=== PATIENT | female | born 1980 | race Caucasian/White ===

== ENCOUNTER 2023-12-16 16:59 | Inpatient (IN) | payer BC, MEDICAID, SELFPAY ==
[2023-12-16] VITALS (13 sets, daily range): BP systolic 138–176; BP diastolic 65–84; PULSE 70–88; RESP 18–88; TEMP 36.1–38.2; O2SAT 88–98; BMI 27.9
--- NOTE | 2023-12-16 17:19 | XR_ITS ---
Examination: AP chest single view Technique: AP portable upright chest single view Exam date and time: December 16, 2023 1737 hrs. Indications: Fever today. Findings: Diffuse extensive bilateral pneumonia Mild prominence left ventricle Median sternotomy wires Impression: Diffuse extensive bilateral pneumonia
--- NOTE | 2023-12-16 17:19 | PD.EDRME ---
Rapid Medical Screening Exam RME Arrival date/time: 12/16/23 16:59 Time Seen by Provider: 12/16/23 17:12 Vital signs: Vital Signs Temperature 100.3 F 12/16/23 17:02 Respiratory Rate 19 12/16/23 17:02 Blood Pressure 156/65 H 12/16/23 17:02 Pulse Oximetry (%) 88 L 12/16/23 17:02 Oxygen Delivery Method Nasal Cannula 12/16/23 17:02 RME Narrative: 43 year old female with past medical history significant for multiple embolic disease, including NM, open-heart surgery, ?collapsed lungs? presents to the Emergency Department with complaint of progressively worsening, cough and shortness of breath, where her oxygen saturation was in the 80s at home, therefore called EMS. She did approximately six of her home, nebulizer treatments and five inhaled puffs without improvements of her shortness of breath over the day. She has completed four out of five days of the Zithromax. It was prescribed by her primary care. Initial work-up started and will be seen by additional provider.
[2023-12-16 18:57] LABS: Lactate (Lactic Acid) 0.8 mMol/L (0.4-2.0)
[2023-12-16 19:14] LABS: Basophils # (Auto) 0.1 Thou/mm3 (0.0-0.2); Basophils % (Auto) 0 % (0-2.5); Eosinophils # (Auto) 0.1 Thou/mm3 (0.0-0.5); Eosinophils % (Auto) 1 % (0-10); Hematocrit 31.7 % (36.0-46.0); Immature Granulocytes % (Auto) 1 % (0-0); Immature Granulocytes Auto 0.14 Thou/mm3 (0.00-0.00); Lymphocytes % (Auto) 9 % (10-50); Mean Corpuscular HGB Conc 34.7 g/dl (31.0-37.0); Mean Corpuscular Hemoglobin 31.5 pg (25.0-35.0); Mean Corpuscular Volume 91 fL (80-100); Monocytes # (Auto) 1.2 Thou/mm3 (0.0-0.8); Monocytes % (Auto) 6 % (0-12); Neutrophils # (Auto) 17.6 Thou/mm3 (1.8-7.7); Neutrophils % (Auto) 83 % (37-80); Nucleated Red Blood Cell % 0 /100 WBC (0); Platelet Count 257 Thou/mm3 (140-440); RDW Standard Deviation 44.3 fL (36.4-46.3); Red Blood Count 3.49 Miln/mm3 (4.00-5.20); White Blood Count 21.1 Thou/mm3 (3.6-11.0)
[2023-12-16 19:17] LABS: B-Type Natriuretic Peptide 411 pg/mL (0-100)
[2023-12-16 19:22] LABS: INR 1.2 (0.9-1.3); Partial Thromboplastin Time 38.5 Seconds (22.0-36.0); Prothrombin Time 13.3 Seconds (9.0-12.2)
[2023-12-16 19:29] LABS: Alanine Aminotransferase < 7 U/L (10-49); Albumin, Serum 3.9 gm/dL (3.5-5.0); Albumin/Globulin Ratio 1.5 (1.2-2.2); Alkaline Phosphatase 87 U/L (46-116); Anion Gap 6 (7-16); Aspartate Amino Transferase 17 U/L (0-34); BUN/Creatinine Ratio 18 Ratio (12-20); Bilirubin,Total 0.8 mg/dL (0.3-1.2); Blood Urea Nitrogen 11 mg/dL (9-23); Calcium 9.2 mg/dL (8.3-10.6); Calcium (Corrected) 9.3 mg/dL (8.5-10.1); Carbon Dioxide 20.6 mMol/L (20.0-31.0); Chloride 109 mMol/L (98-107); Creatinine (Component) 0.6 mg/dL (0.6-1.3); Globulin 2.6 gm/dL (2.3-3.5); Glucose 71 mg/dL (74-106); Osmolality,Calculated 269 (275-295); Potassium 3.2 mMol/L (3.4-5.1); Procalcitonin 0.06 ng/ml (0.0-0.49); Sodium 136 mMol/L (136-145); Total Protein 6.5 gm/dL (5.7-8.2); Troponin I < 0.020 ng/mL (0.0-0.045); eGFR > 60 See Note
[2023-12-16] MEDS: ONDANSETRON INJ 2 MG/ML INJ 2 ML 4 MG IV (19:30)
[2023-12-16] MEDS: MORPHINE SULF INJ 10 MG/ML VIAL 6 MG IV (19:31)
--- NOTE | 2023-12-16 19:43 | PD.EDSOB ---
ED SOB =RME/HPI General Chief Complaint: Shortness of Breath/Dyspnea Stated Complaint: difficulty breathing Time Seen by Provider: 12/16/23 17:12 Arrival date/time: 12/16/23 16:59 RME / HPI RME / HPI Narrative: A 43-year-old female patient with past medical history of ischemic CVA and June 2021, heart failure, coronary artery disease status post CABG, advanced peripheral artery disease, with femoral bypass, insulin-dependent diabetes mellitus, peripheral neuropathy, muscular dystrophy, left lower extremity history myelitis status post above-knee amputation, kyphosis, cervical instability, presented to the ED due to shortness of breath for 5 days before admission. Patient reported on Monday she started to feel chest tightness and she used inhaler at home however did not help, she went to her doctor and she was tested positive for strep. She was given azithromycin however symptoms did not relieve. She started to develop fever and worsening of her shortness of breath. She reported that she has cough but it was dry and nonproductive. On questioning patient reported that she stopped using her Lasix for the last week because she was concerned about her potassium level and she was planning to get it checked before she use her Lasix. She mentions that she has orthopnea and she mentions that she usually has abdominal swelling whenever she feels that she is congested. Patient denied any chest pain except just chest pressure. On review of other system patient reported that she has nausea however she denied any vomiting, any abdominal pain, or tract symptoms. Patient denied any skin rash . Related Data Home Medications ?Medication ?Instructions ?Recorded ?Confirmed nitroglycerin 0.4 mg sublingual 0.4 mg SL PRN PRN CHEST TIGHTNESS 05/30/15 12/09/22 tablet (Nitrostat) #0 tabs fentanyl 50 mcg/hr transdermal 50 mcg topical Q2D 05/16/19 12/09/22 patch insulin glargine 100 unit/mL (3 40 unit subcut DAILY 05/16/19 12/09/22 mL) subcutaneous pen (Basaglar KwikPen U-100 Insulin) insulin lispro 100 unit/mL 25 unit subcut BIDPC 05/16/19 12/09/22 subcutaneous pen (Admelog SoloStar U-100 Insulin lispro) carvedilol 12.5 mg tablet 12.5 mg PO BID 06/23/21 12/09/22 diazepam 5 mg tablet 5 mg PO PRN PRN Phantom Pain 06/23/21 12/09/22 oxycodone 5 mg tablet 5 mg PO Q6H PRN Pain 06/23/21 12/09/22 valsartan 80 mg tablet 40 mg PO BID 06/23/21 12/09/22 apixaban 5 mg tablet (Eliquis) 5 mg PO BID 04/27/22 12/09/22 furosemide 40 mg tablet (Lasix) 40 mg PO BID 04/27/22 12/09/22 pregabalin 75 mg capsule (Lyrica) 75 mg PO BID 09/18/22 12/09/22 ranolazine 500 mg tablet,extended 500 mg PO BID 09/18/22 12/09/22 release,12 hr amlodipine 5 mg tablet 5 mg PO QDAY 12/08/22 12/09/22 isosorbide mononitrate 30 mg 30 mg PO QDAY 12/08/22 12/09/22 tablet,extended release 24 hr fluoxetine 10 mg capsule 10 mg PO QDAY 12/09/22 12/09/22 Allergies Allergy/AdvReac Type Severity Reaction Status Date / Time adhesive Allergy Severe Hives Verified 12/08/22 07:38 protamine Allergy Severe Anaphylaxis Verified 12/08/22 07:38 ED Exam Narrative Physical exam: GEN: AOx3, able to speak full sentences, short of breath HEENT: NC/AC, oral mucosa dry, neck supple CVS: RRR, S1-S2 present, no murmurs appreciated RESP: Coarse crepitations bilaterally, good air entry bilaterally. GI: soft, distended, mild discomfort, NBS MSK: able to move all 3 limbs, left lower extremity amputation above knee, no lower extremity edema SKIN: Feverish, no visible skin rash CAR PILOT: CN II-XII and Sensation grossly intact. Course Quality Measures Current suspected stage: sepsis Possible source: pulmonary Blood cultures ordered: yes Antibiotic ordered: Yes Pertinent labs: 12/16/23 18:50 Lactic Acid 0.8 mMol/L (0.4-2.0) Procalcitonin 0.06 ng/ml (0.0-0.49) sepsis and none Orders Category Date Time Status Bedside Blood Glucose NOW Care 12/16/23 19:19 Active Bedside COVID-19 Antigen Test NOW Care 12/16/23 17:19 Active Bedside Influenza A&B Antigen Test NOW Care 12/16/23 17:19 Active Vending Manager Q4H START 00 Care 12/16/23 19:19 Active Insert IV NOW Care 12/16/23 19:19 Active Strict Intake and Output Routine Care 12/16/23 19:19 Ordered XR chest 1V Stat Exams 12/16/23 17:19 Taken BNP [B-Type Natriuretic Peptide] Stat Lab 12/16/23 18:50 Completed Blood Culture (Lab) Stat Lab 12/16/23 19:19 Ordered CBC Stat Lab 12/16/23 18:50 Completed CMP [Comprehensive Metabolic Panel] Stat Lab 12/16/23 18:50 Completed Lactate (Lactic Acid) Stat Lab 12/16/23 18:50 Completed Partial Thromboplastin Time Stat Lab 12/16/23 18:50 Completed Procalcitonin Stat Lab 12/16/23 18:50 Completed Prothrombin Time with INR Stat Lab 12/16/23 18:50 Completed RSV [Respiratory Syncytial Virus Ag] Stat Lab 12/16/23 17:19 Ordered Troponin I Stat Lab 12/16/23 18:50 Completed Urinalysis Stat Lab 12/16/23 19:19 Ordered Urine Culture Stat Lab 12/16/23 19:19 Ordered Acetaminophen Tab [Tylenol Tab] Med 12/16/23 19:31 Discontinued 650 mg PO X1 ONE Furosemide Inj [Lasix Inj] Med 12/16/23 19:42 Once 40 mg IVP X1 ONE KCL 10% Liq UDC 15 ML Med 12/16/23 19:32 Discontinued 40 meq PO X1 ONE Morphine Inj Med 12/16/23 17:30 Discontinued 6 mg IV X1 ONE Morphine Inj*Mfrout [Morphine Sulf Inj(MFROUT)] Med 12/16/23 17:18 Discontinued 6 mg IV X1 ONE Ondansetron Inj [Zofran Inj] Med 12/16/23 19:24 Discontinued 4 mg IV X1 ONE POTASSIUM CHL 10 mEq IVPB [Kcl Ivpb] Med 12/16/23 19:33 Active 10 meq in 100 ml IV Q1H cefTRIAXone/D5w 1gm IV premix [Rocephin/D5w 1gm IV Med 12/16/23 19:32 Active premix] 50 ml IV X1 Oxygen Delivery NOW RT 12/16/23 19:19 Active Vital Signs Vital signs: Vital Signs Temperature 100.3 F 12/16/23 17:02 Respiratory Rate 19 12/16/23 17:02 Blood Pressure 156/65 H 12/16/23 17:02 Pulse Oximetry (%) 88 L 12/16/23 17:02 Oxygen Delivery Method Nasal Cannula 12/16/23 17:02 Shortness of Breath / Dyspnea MDM Narrative MDM Narrative:: Patient has history of heart failure, came with AHRF and sepsis secondary to pneumonia we started the patient on ceftriaxone and vancomycin we will not start the patient on IV fluids as the patient has heart failure, chest x-ray showed vascular congestion bilaterally and showed left lung infiltrate most likely pneumonic infiltrate. Vitally the patient was found to have blood pressure of 176/84, pulse rate of 88, respiratory rate of 22, heart rate of 100.7, saturating 92% on 11 L of oxygen. WBC was found to be 21.1, hemoglobin of 11, potassium level found to be 3.2 will give the patient 40 potassium p.o. and 20 IV, glucose was found to be 71, will encourage the patient to have oral diet, lactic acid was found to be 0.8, BNP 411 baseline usually in the 200s, even the he has obesity. Procalcitonin was found to be 0.06 normal. Will start the patient on ceftriaxone, vancomycin, given 1 single dose of Lasix 40 mg IV with strict in and out. Will call the hospitalist team for admission for sepsis secondary to pneumonia. Patient data External records reviewed:: [facility] previous records Clinical information provided by:: patient and family Social determinants that could affect healthcare access:: other (specify) Patient has the following chronic illnesses:: Muscular dystrophy How is presenting disease/condition affected by chronic disease/condition?: exacerbated by Evaluation data The following diagnostics were reviewed and interpreted by me:: lab results, radiology exam(s) and EKG tracing(s) Lab and/or radiology exams considered but not ordered:: None Interpretation Summary: Sepsis 2/2 PNA Medications / Prescriptions Medications or Prescriptions considered but not ordered:: none Medication administrations:: Medication Administration History Furosemide (Furosemide Inj 10 Mg/Ml 4ml Vial) 40 mg IVP X1 ONE Stop: 12/16/23 19:43 Ceftriaxone Sodium/Dextrose (Rocephin/D5w 1gm Iv Premix) 50 mls @ 100 mls/hr IV X1 ONE Stop: 12/16/23 20:01 Potassium Chloride (Kcl Ivpb) 10 meq in 100 mls @ 100 mls/hr IV Q1H TALAT Stop: 12/16/23 21:32 Discontinued Medications Acetaminophen (Acetaminophen 325 Mg Tablet) 650 mg PO X1 ONE Stop: 12/16/23 19:32 Morphine Sulfate (Morphine Sulf Inj 4 Mg/Ml Vial) 6 mg IV X1 ONE Stop: 12/16/23 17:19 Last Admin: 12/16/23 19:29 Dose: Not Given Documented By: FABRICE Non-Admin Reason: Duplicate Medication on eMAR Morphine Sulfate (Morphine Sulf Inj 10 Mg/Ml Vial) 6 mg IV X1 ONE Stop: 12/16/23 17:31 Last Admin: 12/16/23 19:31 Dose: 6 mg Documented By: FABRICE Ondansetron HCl (Ondansetron Inj 2 Mg/Ml Inj 2 Ml) 4 mg IV X1 ONE; Protocol Stop: 12/16/23 19:25 Last Admin: 12/16/23 19:30 Dose: 4 mg Documented By: FABRICE Potassium Chloride (Potassium Chloride 10% 20 Meq/15 Ml Udc) 40 meq PO X1 ONE Stop: 12/16/23 19:33 as above if given Consultations Consultation(s) initiated? (list below): Yes Diagnosis Shortness of Breath Differential Diagnosis: acute exacerbation of chronic obstructive airways disease and community acquired pneumonia Most likely diagnosis given after review of the tests above:: sepsis 2/2 PNA Admission Indicated Admission indicated?: indicated Admission Request Was there a request for admission?: Yes Admission Attestation Admission request attestation: Discussed case with [] from Hospitalist service regarding admission. Discussed patients ED course, exam findings, labs, and radiology results. The Hospitalist [agrees,declines] to accept the patient for admission. Disposition Plan Disposition Plan: Admit Discharge Plan Plan Patient Disposition: Admit Acute Care w/in Hospital Prescriptions/Referrals Prescriptions/Med Rec: No Action nitroglycerin [Nitrostat] 0.4 MG tablet, sublingual 0.4 mg SL PRN PRN (Reason: CHEST TIGHTNESS) Qty: 0 insulin glargine [Basaglar KwikPen U-100 Insulin] 100 unit/mL (3 mL) Insulin Pen 40 unit SUBCUT DAILY insulin lispro [Admelog SoloStar U-100 Insulin] 100 unit/mL Insulin Pen 25 unit SUBCUT BIDPC fentanyl 50 mcg/hr Patch 72 Hour 50 mcg topical Q2D Patient Comments: CHANGE PATCH EVERY 48 HRS carvedilol 12.5 mg Tablet 12.5 mg PO BID Rx Instructions: must administer with a meal/food valsartan 80 mg Tablet 40 mg PO BID diazepam 5 mg Tablet 5 mg PO PRN PRN (Reason: Phantom Pain) oxycodone 5 mg Tablet 5 mg PO Q6H PRN (Reason: Pain) amlodipine 5 mg tablet 5 mg PO QDAY isosorbide mononitrate 30 mg Tablet Extended Release 24 Hr 30 mg PO QDAY furosemide [Lasix] 40 mg Tablet 40 mg PO BID Eliquis 5 mg Tablet 5 mg PO BID Hold Instructions: Resume on 12/09/22. Re-start Eliquis on this date at your regular schedule pregabalin [Lyrica] 75 mg Capsule 75 mg PO BID ranolazine 500 mg Tablet Extended Release 12 Hr 500 mg PO BID fluoxetine 10 mg Capsule 10 mg PO QDAY Referrals: Hoang Hu MD [Primary Care Provider] - In 1 week Problem List Clinical Impression: Acute hypoxemic respiratory failure Patient/Caregiver Discharge Instructions Print Language: Tongan Stand Alone Forms: Jennyfer Award Info., Patient Portal Info Letter
[2023-12-16] MEDS: ACETAMINOPHEN 325 MG TABLET 650 MG PO (19:48)
[2023-12-16] MEDS: cefTRIAXone/D5w 1gm IV premix 50 ML IV (20:03)
[2023-12-16] MEDS: POTASSIUM CHLORIDE 20 mEq TABCR 40 MEQ PO (20:31)
[2023-12-16] MEDS: FUROSEMIDE INJ 10 MG/ML 4ML VIAL 40 MG IVP (20:34)
[2023-12-16] MEDS: POTASSIUM CHL 10 mEq IVPB 10 MEQ/100 ML BAG 100 MEQ IV (20:39)
[2023-12-16] MEDS: ALBUTEROL/IPRATROPIUM (Duoneb) RT SOL 3 ML NEBU INH (20:42)
--- NOTE | 2023-12-16 20:52 | ESHP_ITS ---
Documentation for date of: 12/16/23 [facility] History of Present Illness History of present illness: Kecia Fuentes is a 43-year-old female with a past medical history of IDDM, HFpEF, ischemic CVA without deficits (06/2021), severe kyphosis resulting in intermittent atelectasis and pneumonia, history of multiple clots in extremities and coronary arteries resulting in CAD s/p CABG, above the knee amputation, and severe peripheral vascular disease now presenting with shortness of breath. Symptoms started with fever, chills, sore throat on Monday. Patient went to see PCP and was diagnosed with strep throat for which she was given azithromycin but symptoms did not improve. Then developed shortness of breath, congestion, and chest tightness and prompted her to come to the ED and was initially put on 10 L oxymask, and is not on any home oxygen. She states that she often gets pneumonia secondary to her kyphosis that causes atelectasis, which is also the reason she has a rescue inhaler. Patient also endorse nausea but believes it is due to her coughing. Otherwise, denies change in bowel movements, dysuria, hematuria, or abdominal pain. Of note, patient and family are currently undergoing workup for hypercoagulability disorders. ED course: BP 156/65, T 100.7 F, O2 88% -> 90% 15 L oxymask WBC 21, PT/PTT elevated, K 3.2, lactic acid wnl, procal wnl, trop (-), BNP 411 CXR: Diffuse, extensive bilateral pneumonia In ED given ceftriaxone x1, morphine 6 mg IV x1, 50 mEq potassium, lasix 40 mg IV x1, duonebs x1 PMHx: IDDM, HFpEF, kyphosis, recurrent clots, CAD, PVD Medications: Pregabalin 150 mg BID, valsartan 40 mg BID, carvedilol 12.5 mg BID, furosemide, pradaxa BID, ASA 81 mg, ranolazine 1,000 mg, fentanyl patch, oxycodone SHx: Smokes 1 PPD cigarette, no alcohol or illicit drug use PSHx: Above the knee amputation, CABG Review of Systems Review of Systems Systems Reviewed: All systems reviewed, normal except as documented Exam Vital Signs Temp Pulse Resp BP Pulse Ox O2 Del Method O2 Flow Rate 100.7 F H 81 26 H 156/73 H 93 L Oxy Mask 15 12/16/23 19:48 12/16/23 20:42 12/16/23 20:42 12/16/23 20:34 12/16/23 20:42 12/16/23 18:09 12/16/23 20:42 Narrative Exam General: 15 L oxymask, AOx3, no mild distress, able to speak full sentences. HEENT: NC/AT, mucous membranes moist, bilateral sclera anicteric. Cardiovascular: Regular rate and rhythm, S1/S2 present, no murmurs appreciated; scar over sternum. Pulmonary: Diffuse bilateral wheezing and course lung sounds. Abdominal: Soft, non-tender, non-distended, no rebound/guarding, normal bowel sounds present. Musculoskeletal: Left-sided above the knee amputation. Skin: Warm and dry, intact, no rashes. Neuro: CN II-XII intact, no focal deficits. Results: Labs 12/16/23 18:50 12/16/23 18:50 Labs: Short CBC 12/16/23 Range/Units 18:50 WBC 21.1 H (3.6-11.0) Thou/mm3 Hgb 11.0 L (12.0-16.0) g/dL Hct 31.7 L (36.0-46.0) % Plt Count 257 (140-440) Thou/mm3 BMP 12/16/23 18:50 Sodium 136 Potassium 3.2 L Chloride 109 H Carbon Dioxide 20.6 BUN 11 Creatinine 0.6 Glucose 71 L Calcium 9.2 Cardiac Enzymes 12/16/23 Range/Units 18:50 Troponin I < 0.020 (0.0-0.045) ng/mL Liver Function 12/16/23 Range/Units 18:50 Total Bilirubin 0.8 (0.3-1.2) mg/dL AST 17 (0-34) U/L ALT < 7 L (10-49) U/L Alkaline Phosphatase 87 (46-116) U/L Albumin 3.9 (3.5-5.0) gm/dL Quality Measures Quality Measures sepsis Current suspected stage: sepsis Possible source: pulmonary Blood cultures ordered: yes Antibiotic ordered: Yes and none Medications Home Medications and Allergies Home Medications ?Medication ?Instructions ?Recorded ?Confirmed ?Type nitroglycerin 0.4 mg sublingual 0.4 mg SL PRN PRN CHEST TIGHTNESS 05/30/15 12/16/23 History tablet (Nitrostat) #0 tabs fentanyl 50 mcg/hr transdermal 50 mcg topical Q2D 05/16/19 12/16/23 History patch insulin glargine 100 unit/mL (3 40 unit subcut HS 05/16/19 12/17/23 History mL) subcutaneous pen (Basaglar KwikPen U-100 Insulin) insulin lispro 100 unit/mL 25 unit subcut AC 05/16/19 12/17/23 History subcutaneous pen (Admelog SoloStar U-100 Insulin lispro) carvedilol 12.5 mg tablet 12.5 mg PO BID 06/23/21 12/16/23 History oxycodone 5 mg tablet 5 mg PO Q6H PRN Pain 06/23/21 12/16/23 History valsartan 80 mg tablet 40 mg PO BID 06/23/21 12/16/23 History furosemide 40 mg tablet (Lasix) 80 mg PO FAHAD 04/27/22 12/17/23 History pregabalin 75 mg capsule (Lyrica) 150 mg PO BID 09/18/22 12/16/23 History ranolazine 500 mg tablet,extended 1,000 mg PO BID 09/18/22 12/16/23 History release,12 hr amlodipine 5 mg tablet 5 mg PO QDAY PRN Hypertension 12/08/22 12/17/23 History dabigatran etexilate 150 mg 150 mg PO BID 12/16/23 12/16/23 History capsule (Pradaxa) Allergies Allergy/AdvReac Type Severity Reaction Status Date / Time adhesive Allergy Severe Hives Verified 12/08/22 07:38 protamine Allergy Severe Anaphylaxis Verified 12/08/22 07:38 Visit Medications Albuterol/Ipratropium (Albuterol/Ipratropium (Duoneb) Rt Rocio 3 Ml Nebu) 3 ml INH Q2HR PRN PRN Reason: SHORTNESS OF BREATH OR WHEEZE Stop: 01/15/24 20:27 Carvedilol (Carvedilol 12.5 Mg Tablet) 12.5 mg PO BIDWM TALAT Stop: 01/16/24 07:59 Fentanyl (Fentanyl 50 Mcg Transdermal Patch) 50 mcg TOP Q3D TALAT; Protocol Stop: 12/21/23 20:29 Furosemide (Furosemide Inj 10 Mg/Ml 4ml Vial) 40 mg IVP QDAY TALAT Stop: 01/16/24 08:59 Vancomycin/Sodium Chloride (Vancomycin/Ns 1 Gm Ivpb) 200 mls @ 120 mls/hr IV Q100M TALAT Stop: 12/16/23 23:19 Ceftriaxone Sodium/Dextrose (Rocephin/D5w 1gm Iv Premix) 50 mls @ 100 mls/hr IV QDAY TALAT Stop: 12/24/23 08:59 Azithromycin 500 mg/ Sodium (Chloride) 250 mls @ 250 mls/hr IV QDAY TALAT Stop: 12/23/23 20:28 Azithromycin 500 mg/ Sodium (Chloride) 250 mls @ 250 mls/hr IV X1 ONE Stop: 12/16/23 21:44 Non-Formulary Medication (Ranolazine) 1,000 mg PO BID TALAT Stop: 01/15/24 20:59 Non-Formulary Medication (Pradaxa) 150 mg PO BID TALAT Stop: 01/15/24 20:59 Pharmacy Consult (Vancomycin Pharmacy To Dose 1 Each Each) 1 each IV QDAY TALAT Stop: 01/15/24 19:59 Pregabalin (Pregabalin 75 Mg Capsule) 150 mg PO BID TALAT Stop: 01/15/24 20:59 Valsartan (Valsartan 40 Mg Tablet) 40 mg PO BID TALAT Stop: 01/15/24 20:59 Discontinued Medications Acetaminophen (Acetaminophen 325 Mg Tablet) 650 mg PO X1 ONE Stop: 12/16/23 19:32 Last Admin: 12/16/23 19:48 Dose: 650 mg Albuterol/Ipratropium (Albuterol/Ipratropium (Duoneb) Rt Rocio 3 Ml Nebu) 3 ml INH X1 ONE Stop: 12/16/23 20:11 Last Admin: 12/16/23 20:42 Dose: 3 ml Furosemide (Furosemide Inj 10 Mg/Ml 4ml Vial) 40 mg IVP X1 ONE Stop: 12/16/23 19:43 Last Admin: 12/16/23 20:34 Dose: 40 mg Ceftriaxone Sodium/Dextrose (Rocephin/D5w 1gm Iv Premix) 50 mls @ 100 mls/hr IV X1 ONE Stop: 12/16/23 20:01 Last Infusion: 12/16/23 20:42 Dose: Infused Potassium Chloride (Kcl Ivpb) 10 meq in 100 mls @ 100 mls/hr IV Q1H TALAT Stop: 12/16/23 21:32 Last Infusion: 12/16/23 20:45 Dose: 0 mls/hr Morphine Sulfate (Morphine Sulf Inj 4 Mg/Ml Vial) 6 mg IV X1 ONE Stop: 12/16/23 17:19 Last Admin: 12/16/23 19:29 Dose: Not Given Morphine Sulfate (Morphine Sulf Inj 10 Mg/Ml Vial) 6 mg IV X1 ONE Stop: 12/16/23 17:31 Last Admin: 12/16/23 19:31 Dose: 6 mg Ondansetron HCl (Ondansetron Inj 2 Mg/Ml Inj 2 Ml) 4 mg IV X1 ONE; Protocol Stop: 12/16/23 19:25 Last Admin: 12/16/23 19:30 Dose: 4 mg Potassium Chloride (Potassium Chloride 10% 20 Meq/15 Ml Udc) 40 meq PO X1 ONE Stop: 12/16/23 19:33 Last Admin: 12/16/23 20:36 Dose: Not Given Potassium Chloride (Potassium Chloride 20 Meq Tabcr) 40 meq PO X1 ONE Stop: 12/16/23 20:08 Last Admin: 12/16/23 20:31 Dose: 40 meq Assessment & Plan Plan Kecia Fuentes is a 43-year-old female with a past medical history of IDDM, HFpEF, ischemic CVA without deficits (06/2021), severe kyphosis resulting in intermittent atelectasis and pneumonia, history of multiple clots in extremities and coronary arteries resulting in CAD s/p CABG, above the knee amputation, and severe peripheral vascular disease admitted for AHRF and sepsis secondary to pneumonia. #Sepsis, secondary to #Acute hypoxic respiratory failure, secondary to #Pneumonia, bilateral and diffuse Presents with shortness of breath, chest tightness, and congestion after initially being diagnosed with strep throat now requiring oxygen. SIRS 2/4: T 100.7, WBC 20. Source: pneumonia -> sepsis. CXR: diffuse, extensive bilateral pneumonia. Given 1x dose of ceftriaxone in ED. -Azithromycin 500 mg IV daily -Ceftriaxone 1 g IV daily -Duonebs as needed -Follow-up blood culture -Follow-up RSV #Hypokalemia K 3.2 on admission. Repleted total of 50 mEq. -Follow-up BMP #Peripheral vascular disease #History of recurrent clots Currently undergoing outpatient evaluation. -Pradaxa 150 mg PO BID #HFpEF Echo 09/2022: mild LVH, EF 55-60%. No crackles appreciated on exam, no lower extremity edema. BNP 411. -Lasix 40 mg IV daily -Carvedilol 12.5 mg BID -Strict I/O #CAD #S/p CABG Troponin negative. -Aspirin 81 mg daily -Ranolazine 1 g PO BID #Hypertension -Valsartan 40 mg PO BID -Carvedilol as above #Diabetes mellitus, insulin-dependent A1c 7.7% 05/2023. Takes home basaglar 50 units HS. -SSI ACHS -Follow-up A1c #Peripheral neuropathy #Chronic pain Also has home oxycodone, pending [facility] rec. -Pregabalin 140 mg PO BID -Fentanyl 50 mcg topical q3d pending med rec Hospital management: Disposition: 3-4 hospital nights Fluids: not indicated Diet: cardiac Lines: peripheral DVT prophylaxis: pradaxa GI prophylaxis: not indicated [place]: not indicated CODE STATUS: DNR ----- Plan discussed with attending physician Dr. Ty Rowley MD PGY-1 Internal Medicine Attending Provider Attestation/Addendum Pt was evaluated and plan formulated together with the housestaff team. I have reviewed the residents note above and agree with most of its content. Please refer to the residents note for additional details.
--- NOTE | 2023-12-16 21:51 | PD.RESHP ---
Documentation for date of: 12/16/23 Exam Vital Signs Temp Pulse Resp BP Pulse Ox O2 Del Method O2 Flow Rate 100.8 F H 76 18 138/68 H 90 L Nasal Cannula 6 12/16/23 21:34 12/16/23 21:32 12/16/23 21:32 12/16/23 21:32 12/16/23 21:32 12/16/23 21:32 12/16/23 21:32 Results: Labs 12/16/23 18:50 12/16/23 18:50 Labs: Short CBC 12/16/23 Range/Units 18:50 WBC 21.1 H (3.6-11.0) Thou/mm3 Hgb 11.0 L (12.0-16.0) g/dL Hct 31.7 L (36.0-46.0) % Plt Count 257 (140-440) Thou/mm3 BMP 12/16/23 18:50 Sodium 136 Potassium 3.2 L Chloride 109 H Carbon Dioxide 20.6 BUN 11 Creatinine 0.6 Glucose 71 L Calcium 9.2 Cardiac Enzymes 12/16/23 Range/Units 18:50 Troponin I < 0.020 (0.0-0.045) ng/mL Liver Function 12/16/23 Range/Units 18:50 Total Bilirubin 0.8 (0.3-1.2) mg/dL AST 17 (0-34) U/L ALT < 7 L (10-49) U/L Alkaline Phosphatase 87 (46-116) U/L Albumin 3.9 (3.5-5.0) gm/dL Quality Measures Quality Measures sepsis Possible source: pulmonary Blood cultures ordered: yes and none Medications Home Medications and Allergies Home Medications ?Medication ?Instructions ?Recorded ?Confirmed ?Type nitroglycerin 0.4 mg sublingual 0.4 mg SL PRN PRN CHEST TIGHTNESS 05/30/15 12/09/22 History tablet (Nitrostat) #0 tabs fentanyl 50 mcg/hr transdermal 50 mcg topical Q2D 05/16/19 12/09/22 History patch insulin glargine 100 unit/mL (3 40 unit subcut DAILY 05/16/19 12/09/22 History mL) subcutaneous pen (Basaglar KwikPen U-100 Insulin) insulin lispro 100 unit/mL 25 unit subcut BIDPC 05/16/19 12/09/22 History subcutaneous pen (Admelog SoloStar U-100 Insulin lispro) carvedilol 12.5 mg tablet 12.5 mg PO BID 06/23/21 12/09/22 History diazepam 5 mg tablet 5 mg PO PRN PRN Phantom Pain 06/23/21 12/09/22 History oxycodone 5 mg tablet 5 mg PO Q6H PRN Pain 06/23/21 12/09/22 History valsartan 80 mg tablet 40 mg PO BID 06/23/21 12/09/22 History apixaban 5 mg tablet (Eliquis) 5 mg PO BID 04/27/22 12/09/22 History furosemide 40 mg tablet (Lasix) 40 mg PO BID 04/27/22 12/09/22 History pregabalin 75 mg capsule (Lyrica) 75 mg PO BID 09/18/22 12/09/22 History ranolazine 500 mg tablet,extended 500 mg PO BID 09/18/22 12/09/22 History release,12 hr amlodipine 5 mg tablet 5 mg PO QDAY 12/08/22 12/09/22 History isosorbide mononitrate 30 mg 30 mg PO QDAY 12/08/22 12/09/22 History tablet,extended release 24 hr fluoxetine 10 mg capsule 10 mg PO QDAY 12/09/22 12/09/22 History Allergies Allergy/AdvReac Type Severity Reaction Status Date / Time adhesive Allergy Severe Hives Verified 12/08/22 07:38 protamine Allergy Severe Anaphylaxis Verified 12/08/22 07:38 Visit Medications Albuterol/Ipratropium (Albuterol/Ipratropium (Duoneb) Rt Rocio 3 Ml Nebu) 3 ml INH Q2HR PRN PRN Reason: SHORTNESS OF BREATH OR WHEEZE Stop: 01/15/24 20:27 Carvedilol (Carvedilol 12.5 Mg Tablet) 12.5 mg PO BIDWM TALAT Stop: 01/16/24 07:59 Fentanyl (Fentanyl 50 Mcg Transdermal Patch) 50 mcg TOP Q3D TALAT; Protocol Stop: 12/21/23 20:29 Furosemide (Furosemide Inj 10 Mg/Ml 4ml Vial) 40 mg IVP QDAY [facility] Stop: 01/16/24 08:59 Vancomycin/Sodium Chloride (Vancomycin/Ns 1 Gm Ivpb) 200 mls @ 120 mls/hr IV Q100M TALAT Stop: 12/16/23 23:19 Ceftriaxone Sodium/Dextrose (Rocephin/D5w 1gm Iv Premix) 50 mls @ 100 mls/hr IV QDAY TALAT Stop: 12/24/23 08:59 Azithromycin 500 mg/ Sodium (Chloride) 250 mls @ 250 mls/hr IV QDAY TALAT Stop: 12/23/23 20:28 Non-Formulary Medication (Ranolazine) 1,000 mg PO BID TALAT Stop: 01/15/24 20:59 Non-Formulary Medication (Pradaxa) 150 mg PO BID TALAT Stop: 01/15/24 20:59 Pharmacy Consult (Vancomycin Pharmacy To Dose 1 Each Each) 1 each IV QDAY TALAT Stop: 01/15/24 19:59 Pregabalin (Pregabalin 75 Mg Capsule) 150 mg PO BID TALAT Stop: 01/15/24 20:59 Valsartan (Valsartan 40 Mg Tablet) 40 mg PO BID TALAT Stop: 01/15/24 20:59 Discontinued Medications Acetaminophen (Acetaminophen 325 Mg Tablet) 650 mg PO X1 ONE Stop: 12/16/23 19:32 Last Admin: 12/16/23 19:48 Dose: 650 mg Albuterol/Ipratropium (Albuterol/Ipratropium (Duoneb) Rt Rocio 3 Ml Nebu) 3 ml INH X1 ONE Stop: 12/16/23 20:11 Last Admin: 12/16/23 20:42 Dose: 3 ml Furosemide (Furosemide Inj 10 Mg/Ml 4ml Vial) 40 mg IVP X1 ONE Stop: 12/16/23 19:43 Last Admin: 12/16/23 20:34 Dose: 40 mg Ceftriaxone Sodium/Dextrose (Rocephin/D5w 1gm Iv Premix) 50 mls @ 100 mls/hr IV X1 ONE Stop: 12/16/23 20:01 Last Infusion: 12/16/23 20:42 Dose: Infused Potassium Chloride (Kcl Ivpb) 10 meq in 100 mls @ 100 mls/hr IV Q1H TALAT Stop: 12/16/23 21:32 Last Admin: 12/16/23 21:34 Dose: Not Given Azithromycin 500 mg/ Sodium (Chloride) 250 mls @ 250 mls/hr IV X1 ONE Stop: 12/16/23 21:44 Morphine Sulfate (Morphine Sulf Inj 4 Mg/Ml Vial) 6 mg IV X1 ONE Stop: 12/16/23 17:19 Last Admin: 12/16/23 19:29 Dose: Not Given Morphine Sulfate (Morphine Sulf Inj 10 Mg/Ml Vial) 6 mg IV X1 ONE Stop: 12/16/23 17:31 Last Admin: 12/16/23 19:31 Dose: 6 mg Ondansetron HCl (Ondansetron Inj 2 Mg/Ml Inj 2 Ml) 4 mg IV X1 ONE; Protocol Stop: 12/16/23 19:25 Last Admin: 12/16/23 19:30 Dose: 4 mg Potassium Chloride (Potassium Chloride 10% 20 Meq/15 Ml Udc) 40 meq PO X1 ONE Stop: 12/16/23 19:33 Last Admin: 12/16/23 20:36 Dose: Not Given Potassium Chloride (Potassium Chloride 20 Meq Tabcr) 40 meq PO X1 ONE Stop: 12/16/23 20:08 Last Admin: 12/16/23 20:31 Dose: 40 meq
[2023-12-16] MEDS: PREGABALIN 75 MG CAPSULE 150 MG PO (22:00)
[2023-12-16] MEDS: AZITHROMYCIN INJ 500 MG in SODIUM CHLORIDE 0.9% 250 ML 250 ML 250 MG IV (22:03)
[2023-12-16] MEDS: IBUPROFEN TAB 400 MG TABLET 600 MG PO (22:32)
[2023-12-16 23:17] LABS: Collection Type, Urine Clean Catch; RBC,Urine 0 /hpf (0-3); WBC,Urine 0 /hpf (0-5)
[2023-12-16 23:49] LABS: Bacteria,Urine Rare; Bilirubin,Urine Negative (Negative); Blood,Urine Negative (Negative); Clarity,Urine Clear (Clear/Hazy); Color,Urine Lt-Yellow (Lt Yel-Yel); Glucose, Urine Negative (Negative); Ketones,Urine Negative (Negative); Leukocyte Esterase,Urine Negative (Negative); Nitrite,Urine Negative (Negative); PH,Urine 6.5 (5.0-7.0); Protein,Urine Negative (Neg - Trace); Squamous Epithelial Cell,Urine < 1 /hpf (0-5); Urobilinogen,Urine Negative mg/dL (0.0-1.0)
[2023-12-17] VITALS (19 sets, daily range): BP systolic 120–140; BP diastolic 56–68; PULSE 57–82; RESP 12–30; TEMP 36–36.4; O2SAT 83–96
[2023-12-17] MEDS: VALSARTAN 40 MG TABLET PO ×3 (00:14→21:08)
[2023-12-17] MEDS: oxyCODONE HCL 5 MG IR TAB PO (00:41)
[2023-12-17] MEDS: VANCOMYCIN/NS 1 GM IVPB 200 ML IV ×4 (01:18→21:47)
[2023-12-17] MEDS: MORPHINE SULF INJ 10 MG/ML VIAL 6 MG IVP (01:19)
[2023-12-17 04:56] LABS: Basophils # (Auto) 0.1 Thou/mm3 (0.0-0.2); Basophils % (Auto) 0 % (0-2.5); Eosinophils # (Auto) 0.2 Thou/mm3 (0.0-0.5); Eosinophils % (Auto) 1 % (0-10); Hematocrit 30.7 % (36.0-46.0); Hemoglobin 10.8 g/dL (12.0-16.0); Immature Granulocytes % (Auto) 1 % (0-0); Immature Granulocytes Auto 0.09 Thou/mm3 (0.00-0.00); Lymphocytes # (Auto) 2.7 Thou/mm3 (1.0-4.8); Lymphocytes % (Auto) 15 % (10-50); Mean Corpuscular HGB Conc 35.2 g/dl (31.0-37.0); Mean Corpuscular Hemoglobin 32.7 pg (25.0-35.0); Mean Corpuscular Volume 93 fL (80-100); Monocytes # (Auto) 1.3 Thou/mm3 (0.0-0.8); Monocytes % (Auto) 7 % (0-12); Neutrophils # (Auto) 13.8 Thou/mm3 (1.8-7.7); Neutrophils % (Auto) 76 % (37-80); Nucleated Red Blood Cell % 0 /100 WBC (0); Platelet Count 272 Thou/mm3 (140-440); RDW Standard Deviation 46.4 fL (36.4-46.3); White Blood Count 18.2 Thou/mm3 (3.6-11.0)
[2023-12-17 06:16] LABS: Anion Gap 8 (7-16); BUN/Creatinine Ratio 19 Ratio (12-20); Blood Urea Nitrogen 13 mg/dL (9-23); Chloride 108 mMol/L (98-107); Creatinine (Component) 0.7 mg/dL (0.6-1.3); Estimated Creatinine Clearance 123.4 mL/min (>60); Glucose 85 mg/dL (74-106); Osmolality,Calculated 276 (275-295); Potassium 3.8 mMol/L (3.4-5.1); Sodium 139 mMol/L (136-145); eGFR > 60 See Note
[2023-12-17 07:01] LABS: Glucose Estimated Average 143 mg/dL (80-131); Hemoglobin A1C 6.6 % Hgb (4.8-6.0)
[2023-12-17] MEDS: ALBUTEROL/IPRATROPIUM (Duoneb) RT SOL 3 ML NEBU INH ×3 (08:00→19:22)
[2023-12-17 08:16] LABS: D-Dimer 1010 ng/mL (<600)
[2023-12-17] MEDS: INSULIN LISPRO (AdmeLOG) 1 UNIT/0.01 ML UNIT SC ×2 (08:37→21:21)
[2023-12-17] MEDS: PREGABALIN 75 MG CAPSULE 150 MG PO ×2 (08:37→21:09)
[2023-12-17] MEDS: carVEDILOL 12.5 MG TABLET PO ×2 (08:38→16:46)
[2023-12-17] MEDS: ASPIRIN EC 81 MG TABEC PO (08:38)
[2023-12-17] MEDS: FUROSEMIDE INJ 10 MG/ML 4ML VIAL 40 MG IVP (08:40)
[2023-12-17] MEDS: MORPHINE SULF INJ 10 MG/ML VIAL 2 MG IVP ×4 (09:15→23:39)
[2023-12-17] MEDS: fentaNYL 50 mCg TRANSDERMAL PATCH TOP (09:16)
[2023-12-17] MEDS: RANOLAZINE 500 MG TABER (NON FORMULARY) 1000 MG PO ×2 (09:56→21:09)
[2023-12-17] MEDS: PRADAXA 150 MG PO ×2 (11:39→21:09)
--- NOTE | 2023-12-17 13:32 | ESPR_ITS ---
Documentation for date of: 12/17/23 Subjective Subjective Interval history: 12/16: Patient was admitted overnight, patient was seen and examined at bedside this morning. Patient is continuing to have congestion and chest tightness but no chest pain. Patient states that most of her symptoms are related to cough with yellowish phlegm and shortness of breath requiring oxygen and breathing treatments continuously. Patient denied fever, chills, sore throat. Patient states that she is nauseous but denies vomiting. Patient denies symptoms of UTI such as dysuria burning or urgency. Patient requested Acapella device therapy which she has previously used with the respiratory therapist. Exam Vital Signs Temp Pulse Resp BP Pulse Ox O2 Del Method O2 Flow Rate 97.6 F 66 18 133/68 H 91 L Nasal Cannula 1 12/17/23 12:00 12/17/23 12:00 12/17/23 12:00 12/17/23 12:00 12/17/23 12:00 12/17/23 12:00 12/17/23 12:00 Narrative Exam GENERAL: A&Ox3 . 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 mucous membranes moist. Eyes open, symmetrical, & clear HEART: Normal Heart Sounds LUNGS: Clear to auscultation ABDOMEN: soft, non-distended, non-tender, bowel sounds heard, no guarding or rebound tenderness SKIN: No Rash or ecchymoses EXTREMITIES: No edema, tenderness, below-knee amputation of left lower extremity Objective Labs 12/18/23 05:33 12/18/23 05:33 Labs: Laboratory Results - last 24 hr 12/16/23 12/16/23 12/17/23 18:50 22:52 04:20 WBC 21.1 H 18.2 H RBC 3.49 L 3.30 L Hgb 11.0 L 10.8 L Hct 31.7 L 30.7 L MCV 91 93 MCH 31.5 32.7 MCHC 34.7 35.2 RDW Std Deviation 44.3 46.4 H Plt Count 257 272 Neut % (Auto) 83 H 76 Lymph % (Auto) 9 L 15 Traverse % (Auto) 6 7 Eos % (Auto) 1 1 Baso % (Auto) 0 0 Neut # (Auto) 17.6 H 13.8 H Lymph # (Auto) 2.0 2.7 Traverse # (Auto) 1.2 H 1.3 H Eos # (Auto) 0.1 0.2 Baso # (Auto) 0.1 0.1 Immature Gran # (Auto) 0.14 H 0.09 H Absolute Nucleated RBC 0.00 0.00 Immature Gran % 1 H 1 H Nucleated RBC % 0 0 PT 13.3 H INR 1.2 APTT 38.5 H D-Dimer 1010 H Sodium 136 139 Potassium 3.2 L 3.8 D Chloride 109 H 108 H Carbon Dioxide 20.6 23.0 Anion Gap 6 L 8 BUN 11 13 Creatinine 0.6 0.7 Estim Creat Clear Calc 146.0 123.4 eGFR > 60 > 60 BUN/Creatinine Ratio 18 19 Glucose [address] Glu mg/dL 143 H Hemoglobin A1c 6.6 H Calculated Osmolality 269 L 276 Lactic Acid 0.8 Calcium 9.2 9.0 Corrected Calcium 9.3 Total Bilirubin 0.8 AST 17 ALT < 7 L Alkaline Phosphatase 87 Troponin I < 0.020 B-Natriuretic Peptide 411 H Total Protein 6.5 Albumin 3.9 Globulin 2.6 Albumin/Globulin Ratio 1.5 Procalcitonin 0.06 Ur Collection Type Clean Catch Urine Color Lt-Yellow Urine Clarity Clear Urine pH 6.5 Ur Specific [place] 1.010 Urine Protein Negative Urine Glucose (UA) Negative Urine Ketones Negative Urine Blood Negative Urine Nitrite Negative Urine Bilirubin Negative Urine Urobilinogen (Auto) Negative Ur Leukocyte Esterase Negative Urine RBC 0 Urine WBC 0 Ur Squamous Epith Cells < 1 Urine Bacteria Rare Quality Measures Quality Measures sepsis Current suspected stage: sepsis Possible source: pulmonary Blood cultures ordered: yes Antibiotic ordered: Yes and none Assessment & Plan Assessment Current Active Medications: Generic Name Dose Route Start Last Admin Trade Name Freq PRN Reason Stop Dose Admin Albuterol/Ipratropium 3 ml 12/16/23 20:28 12/17/23 08:00 Albuterol/Ipratropium (Duoneb) Rt Rocio 3 Ml Nebu INH 01/15/24 20:27 3 ml Q2HR PRN Administration SHORTNESS OF BREATH OR WHEEZE Aspirin 81 mg 12/17/23 09:00 12/17/23 08:38 Aspirin Ec 81 Mg Tabec PO 01/16/24 08:59 81 mg QDAY TALAT Administration Azithromycin 500 mg 12/17/23 21:00 Azithromycin 250 Mg Tablet PO 12/24/23 20:59 [facility] Protocol Carvedilol 12.5 mg 12/17/23 08:00 12/17/23 08:38 Carvedilol 12.5 Mg Tablet PO 01/16/24 07:59 12.5 mg BIDWM TALAT Administration Pradaxa 150mg 0 ea 12/17/23 11:00 12/17/23 11:39 Capsule PO 01/16/24 10:59 1 capsule BID TALAT Administration Dextrose 25 ml 12/16/23 22:25 Dextrose 50%-Water Inj 50 Ml Syringe IV 01/15/24 22:24 Q15MIN PRN BG 50-70 responsive npo pt Dextrose 50 ml 12/16/23 22:25 Dextrose 50%-Water Inj 50 Ml Syringe IV 01/15/24 22:24 Q15MIN PRN BG <50 OR BG <70 & pt unresponsive Fentanyl 50 mcg 12/17/23 09:00 12/17/23 09:16 Fentanyl 50 Mcg Transdermal Patch TOP 12/22/23 08:59 50 mcg Q3D TALAT Administration Protocol Furosemide 40 mg 12/17/23 09:00 12/17/23 08:40 Furosemide Inj 10 Mg/Ml 4ml Vial IVP 01/16/24 08:59 40 mg QDAY TALAT Administration Glucagon 1 mg 12/16/23 22:25 Glucagon Inj 1 Mg Vial IM Q15MIN PRN BG <70, and no IV access Ceftriaxone Sodium/Dextrose 50 mls @ 100 mls/hr 12/17/23 21:00 Rocephin/D5w 1gm Iv Premix IV 12/24/23 20:59 DAILY@2100 [facility] Vancomycin/Sodium Chloride 200 mls @ 120 mls/hr 12/17/23 14:00 Vancomycin/Ns 1 Gm Ivpb IV 12/24/23 13:59 Q8HR [facility] Protocol Insulin Human Lispro 0 unit 12/17/23 07:30 12/17/23 11:38 Insulin Lispro (Admelog) 1 Unit/0.01 Ml Unit SC 01/16/24 07:29 Not Given ACHS [facility] Protocol Morphine Sulfate 2 mg 12/17/23 08:54 Morphine Sulf Inj 10 Mg/Ml Vial IVP 12/22/23 08:53 Q4HR PRN Pain 7-10 Oxycodone HCl 5 mg 12/17/23 08:57 Oxycodone Hcl 5 Mg Ir Tab PO 12/22/23 00:13 Q6HR PRN PAIN 1-6 (mild-mod Pharmacy Consult 1 each 12/16/23 20:00 Vancomycin Pharmacy To Dose 1 Each Each IV 01/15/24 19:59 QDAY PRN PROTOCOL Pregabalin 150 mg 12/16/23 21:00 12/17/23 08:37 Pregabalin 75 Mg Capsule PO 01/15/24 20:59 150 mg BID TALAT Administration Ranolazine 1,000 mg 12/16/23 21:00 12/17/23 09:56 Ranolazine 500 Mg Hector (Non Formulary) PO 01/15/24 20:59 1,000 mg BID TALAT Administration Valsartan 40 mg 12/16/23 21:00 12/17/23 08:39 Valsartan 40 Mg Tablet PO 01/15/24 20:59 40 mg BID TALAT Administration Plan Ms. 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 Patient is admitted to the hospital for the management of acute hypoxic respiratory failure and sepsis secondary to pneumonia. #Sepsis, secondary to #Acute hypoxic respiratory failure, secondary to #Pneumonia, bilateral and diffuse -SIRS 2/4: T 100.7, WBC 21.1 -On arrival Pt. was saturating at 88% on 10 oxygen via oxy-mask -Presents with shortness of breath, chest tightness, and congestion after initially being diagnosed with strep throat now requiring oxygen. -CXR: diffuse, extensive bilateral pneumonia. -Given 1x dose of ceftriaxone in ED. Plan: -Azithromycin 500 mg IV daily -Ceftriaxone 1 g IV daily -Vancomycin - D/c after MRSA negative -Duonebs as needed -Acapella device (chest physiotherapy) as needed -Follow-up blood culture -Follow-up RSV-pending #Acute CHF exacerbation #Fluid overload #HFpEF -PT. has a history of CHF with preserved ejection fraction , echo 09/2022: mild LVH, EF 55-60%. -No crackles appreciated on exam, no lower extremity edema. -BNP 411 Plan: -Continue diuresis with Lasix 40 mg IV daily -Fluid restriction 1200 cc -Carvedilol 12.5 mg BID -Strict I/O #CAD #S/p CABG Troponin negative. -Aspirin 81 mg daily -Ranolazine 1 g PO BID #Hypokalemia- resolved -K 3.2 on admission. -Repleted total of 50 mEq, repeat K in the the morning 3.8 -Follow-up BMP #Peripheral vascular disease #History of recurrent clots -Currently undergoing outpatient evaluation. -Pradaxa 150 mg PO BID #Hypertension -Valsartan 40 mg BID -Carvedilol 12.5 BID #Diabetes mellitus, insulin-dependent A1c 7.7% 05/2023. Takes home basaglar 50 units HS. -SSI ACHS -Follow-up A1c #Peripheral neuropathy #Chronic pain -Also has home oxycodone, pending [facility] rec. -Pregabalin 140 mg PO BID -Fentanyl 50 mcg topical q3d pending med rec Disposition: Med tele Diet: cardiac DVT prophylaxis: pradaxa GI prophylaxis: not indicated Assessment and plan discussed with my senior resident Dr. Quigley & attending physician Dr. Daniel Lr ([id number]-[id number])- Internal medicine resident Attending Provider Attestation/Addendum I reviewed labs, imaging, EKG, home medications and prior available records. Face to face evaluation was performed by me. I have personally examined the patient and discussed assessment and plan with the IM team. I reviewed the resident note and agree with the plan with exceptions as below. Acute hypoxic respiratory failure: In the setting of CHF exacerbation versus bilateral pneumonia. Continue IV Lasix. Continue vancomycin/ceftriaxone/azithromycin. Follow-up cultures and MRSA test. CHF exacerbation: In the setting of history of heart failure with preserved EF. Diuresis as above. Resume home medications. Bilateral pneumonia: As above. History of recurrent clotting events: Resume home anticoagulation. Outpatient workup with hematology.
[2023-12-17 15:50] LABS: Respiratory Syncytial Virus Ag Negative (Negative)
--- NOTE | 2023-12-17 16:27 | PC.SS ---
This is 43-year-old, female who presented to the ED due to suffering from a fever. Patient appeared alert and oriented to self, place and situation. Patient resides at home with family. Patient needs assistance with some ADLs; she uses a powerwheelchair or manual wheelchair for ambulation due to a left AKA. Patient does not have O2 at home. Patient assigned her ex-, Ricardo Kearney, as her medical decision maker. Patient follows up with Dr. Bolton, Dr. Islas, Dr. Farmer and Dr. Aquino. Patient also attend [facility]. When medically clear, patient will return home; her daughter will provide transportation.
[2023-12-17] MEDS: PROMETHAZINE/DM SYRUP 5 ML DOSE PO (18:13)
[2023-12-17] MEDS: AZITHROMYCIN 250 MG TABLET 500 MG PO (21:08)
[2023-12-17] MEDS: cefTRIAXone/D5w 1gm IV premix 50 ML IV (21:10)
[2023-12-18] VITALS (20 sets, daily range): BP systolic 113–155; BP diastolic 60–80; PULSE 57–87; RESP 14–34; TEMP 35.8–36.6; O2SAT 92–99; BMI 27.2
[2023-12-18] MEDS: ALBUTEROL/IPRATROPIUM (Duoneb) RT SOL 3 ML NEBU INH ×2 (00:28→03:37)
[2023-12-18] MEDS: PROMETHAZINE/DM SYRUP 5 ML DOSE PO (03:30)
[2023-12-18 05:56] LABS: Basophils # (Auto) 0.1 Thou/mm3 (0.0-0.2); Basophils % (Auto) 1 % (0-2.5); Eosinophils # (Auto) 0.2 Thou/mm3 (0.0-0.5); Eosinophils % (Auto) 1 % (0-10); Hematocrit 31.8 % (36.0-46.0); Hemoglobin 10.8 g/dL (12.0-16.0); Immature Granulocytes % (Auto) 1 % (0-0); Lymphocytes # (Auto) 1.6 Thou/mm3 (1.0-4.8); Lymphocytes % (Auto) 9 % (10-50); Mean Corpuscular Hemoglobin 31.1 pg (25.0-35.0); Mean Corpuscular Volume 92 fL (80-100); Monocytes # (Auto) 1.2 Thou/mm3 (0.0-0.8); Monocytes % (Auto) 7 % (0-12); Neutrophils # (Auto) 14.3 Thou/mm3 (1.8-7.7); Neutrophils % (Auto) 82 % (37-80); Nucleated Red Blood Cell % 0 /100 WBC (0); Platelet Count 280 Thou/mm3 (140-440); RDW Standard Deviation 44.7 fL (36.4-46.3); Red Blood Count 3.47 Miln/mm3 (4.00-5.20); White Blood Count 17.5 Thou/mm3 (3.6-11.0)
[2023-12-18] MEDS: MORPHINE SULF INJ 10 MG/ML VIAL 2 MG IVP ×4 (06:01→20:34)
[2023-12-18 06:20] LABS: Anion Gap 7 (7-16); BUN/Creatinine Ratio 22 Ratio (12-20); Blood Urea Nitrogen 13 mg/dL (9-23); Calcium 8.8 mg/dL (8.3-10.6); Carbon Dioxide 22.9 mMol/L (20.0-31.0); Chloride 105 mMol/L (98-107); Creatinine (Component) 0.6 mg/dL (0.6-1.3); Estimated Creatinine Clearance 144.2 mL/min (>60); Glucose 167 mg/dL (74-106); Osmolality,Calculated 274 (275-295); Potassium 3.3 mMol/L (3.4-5.1); Sodium 135 mMol/L (136-145); Vancomycin,Trough 11.6 mcg/mL (5.0-10.0); eGFR > 60 See Note
[2023-12-18] MEDS: VANCOMYCIN/NS 1 GM IVPB 200 ML IV (06:26)
[2023-12-18] MEDS: INSULIN LISPRO (AdmeLOG) 1 UNIT/0.01 ML UNIT SC ×3 (08:25→16:24)
[2023-12-18] MEDS: FUROSEMIDE INJ 10 MG/ML 4ML VIAL 40 MG IVP (08:57)
[2023-12-18] MEDS: carVEDILOL 12.5 MG TABLET PO ×2 (08:58→16:38)
[2023-12-18] MEDS: VALSARTAN 40 MG TABLET PO ×2 (08:58→20:35)
[2023-12-18] MEDS: ASPIRIN EC 81 MG TABEC PO (09:01)
[2023-12-18] MEDS: PREGABALIN 75 MG CAPSULE 150 MG PO ×2 (09:01→20:35)
[2023-12-18] MEDS: PRADAXA 150 MG PO ×2 (09:08→20:35)
[2023-12-18] MEDS: RANOLAZINE 500 MG TABER (NON FORMULARY) 1000 MG PO ×2 (09:09→20:36)
--- NOTE | 2023-12-18 09:55 | ESPR_ITS ---
<Statement entered by Juanito Dupree DO - 12/18/23 20:36> Senior attestation: Patient was examined and case was reviewed with team including attending physician. Note reviewed, I agree with most of its contents and agree with the patient's care. Patient was placed on HFNC over night, will continue diuresis today and begin IV steroids with duonebs, patient noted to improve throughout the day. Will continue diuresis and order repeat echo given CHF exacerbation concerns. Juanito Dupree DO PGY-3 Documentation for date of: 12/18/23 Subjective Subjective Interval history: 12/16: Patient was admitted overnight, patient was seen and examined at bedside this morning. Patient is continuing to have congestion and chest tightness but no chest pain. Patient states that most of her symptoms are related to cough with yellowish phlegm and shortness of breath requiring oxygen and breathing treatments continuously. Patient denied fever, chills, sore throat. Patient states that she is nauseous but denies vomiting. Patient denies symptoms of UTI such as dysuria burning or urgency. Patient requested Acapella device therapy which she has previously used with the respiratory therapist. 12/17: Overnight patient saturating in the low 80s therefore patient was switched to high flow oxygen. Patient then developed anxiety and panic type because of having bleeding with the nasal cannula which she is not used to. Patient understands that she needs send to be able to breathe and is very uncomfortable and is still getting used to it during sleep. Patient is seen and examined at bedside this morning she is on 20L high flow oxygen via nasal cannula saturating at 70%. Patient states that she was unable to obtain a small amount feels like her throat is scratchy and tightening and states that this is a chronic problem. Patient denies any allergies, choking on food or liquids. She states that this is a chronic problem for her and she feels like it is just difficult to swallow and feels slight burning sensation when she tries to swallow liquid. Patient attributes her symptoms to recent strep throat infection and requested some Solu-Medrol which helps her with her symptoms. Exam Vital Signs Temp Pulse Resp BP Pulse Ox O2 Del Method O2 Flow Rate 97.1 F 68 34 H 155/72 H 95 Nasal Cannula 20 12/18/23 04:00 12/18/23 09:09 12/18/23 06:56 12/18/23 09:09 12/18/23 06:56 12/18/23 04:00 12/18/23 06:56 FiO2 70 12/18/23 06:56 Narrative Exam GENERAL: A&Ox3 . Awake, Not in acute distress, using oxy-mask NEURO: ethics officer grossly intact, moves extremities x4 HEENT: Atraumatic, Normocephalic. mucous membranes moist. Eyes open, symmetrical, & clear HEART: Normal Heart Sounds LUNGS: bilateral wheezing on auscultation ABDOMEN: soft, non-distended, non-tender, bowel sounds heard, no guarding or rebound tenderness SKIN: No Rash or ecchymoses EXTREMITIES: No edema, tenderness, below-knee amputation of left lower extremity Objective Labs 12/19/23 05:07 12/19/23 05:07 Labs: Laboratory Results - last 24 hr 12/17/23 12/18/23 15:00 05:33 WBC 17.5 H RBC 3.47 L Hgb 10.8 L Hct 31.8 L MCV 92 MCH 31.1 MCHC 34.0 RDW Std Deviation 44.7 Plt Count 280 Neut % (Auto) 82 H Lymph % (Auto) 9 L [place] % (Auto) 7 Eos % (Auto) 1 Baso % (Auto) 1 Neut # (Auto) 14.3 H Lymph # (Auto) 1.6 [place] # (Auto) 1.2 H Eos # (Auto) 0.2 Baso # (Auto) 0.1 Immature Gran # (Auto) 0.10 H Absolute Nucleated RBC 0.00 Immature Gran % 1 H Nucleated RBC % 0 Sodium 135 L Potassium 3.3 L D Chloride 105 Carbon Dioxide 22.9 Anion Gap 7 BUN 13 Creatinine 0.6 Estim Creat Clear Calc 144.2 eGFR > 60 BUN/Creatinine Ratio 22 H Glucose 167 H D Calculated Osmolality 274 L Calcium 8.8 Vancomycin Trough 11.6 H RSV Rapid Negative Quality Measures Quality Measures sepsis Current suspected stage: ruled out Possible source: pulmonary Blood cultures ordered: yes Antibiotic ordered: Yes and none Assessment & Plan Assessment Current Active Medications: Generic Name Dose Route Start Last Admin Trade Name Freq PRN Reason Stop Dose Admin Albuterol/Ipratropium 3 ml 12/16/23 20:28 12/18/23 03:37 Albuterol/Ipratropium (Duoneb) Rt Rocio 3 Ml Nebu INH 01/15/24 20:27 3 ml Q2HR PRN Administration SHORTNESS OF BREATH OR WHEEZE Aspirin 81 mg 12/17/23 09:00 12/18/23 09:01 Aspirin Ec 81 Mg Tabec PO 01/16/24 08:59 81 mg QDAY TALAT Administration Azithromycin 500 mg 12/17/23 21:00 12/17/23 21:08 Azithromycin 250 Mg Tablet PO 12/24/23 20:59 500 mg 2100 TALAT Administration Protocol Carvedilol 12.5 mg 12/17/23 08:00 12/18/23 08:58 Carvedilol 12.5 Mg Tablet PO 01/16/24 07:59 12.5 mg BIDWM TALAT Administration Pradaxa 150mg 0 ea 12/17/23 11:00 12/18/23 09:08 Capsule PO 01/16/24 10:59 1 capsule BID TALAT Administration Dextrose 25 ml 12/16/23 22:25 Dextrose 50%-Water Inj 50 Ml Syringe IV 01/15/24 22:24 Q15MIN PRN BG 50-70 responsive npo pt Dextrose 50 ml 12/16/23 22:25 Dextrose 50%-Water Inj 50 Ml Syringe IV 01/15/24 22:24 Q15MIN PRN BG <50 OR BG <70 & pt unresponsive Fentanyl 50 mcg 12/17/23 09:00 12/17/23 09:16 Fentanyl 50 Mcg Transdermal Patch TOP 12/22/23 08:59 50 mcg Q3D TALAT Administration Protocol Furosemide 40 mg 12/17/23 09:00 12/18/23 08:57 Furosemide Inj 10 Mg/Ml 4ml Vial IVP 01/16/24 08:59 40 mg QDAY TALAT Administration Glucagon 1 mg 12/16/23 22:25 Glucagon Inj 1 Mg Vial IM Q15MIN PRN BG <70, and no IV access Guaifenesin 100 mg 12/18/23 03:44 Guaifenesin Syrup 200 Mg/10 Ml Udc PO 01/17/24 03:43 QID PRN COUGH Protocol Ceftriaxone Sodium/Dextrose 50 mls @ 100 mls/hr 12/17/23 21:00 12/17/23 21:10 Rocephin/D5w 1gm Iv Premix IV 12/24/23 20:59 100 mls/hr DAILY@2100 TALAT Administration Vancomycin HCl/Dextrose 250 mls @ 120 mls/hr 12/18/23 14:00 Vancomycin/D5w 1,250 Mg Ivpb IV 12/25/23 13:59 Q8HR TALAT Insulin Human Lispro 0 unit 12/17/23 07:30 12/18/23 08:25 Insulin Lispro (Admelog) 1 Unit/0.01 Ml Unit SC 01/16/24 07:29 1 unit ACHS TALAT Administration Protocol Morphine Sulfate 2 mg 12/17/23 08:54 12/18/23 06:01 Morphine Sulf Inj 10 Mg/Ml Vial IVP 12/22/23 08:53 2 mg Q4HR PRN Administration Pain 7-10 Oxycodone HCl 5 mg 12/17/23 08:57 Oxycodone Hcl 5 Mg Ir Tab PO 12/22/23 00:13 Q6HR PRN PAIN 1-6 (mild-mod Pharmacy Consult 1 each 12/16/23 20:00 Vancomycin Pharmacy To Dose 1 Each Each IV 01/15/24 19:59 QDAY PRN PROTOCOL Pregabalin 150 mg 12/16/23 21:00 12/18/23 09:01 Pregabalin 75 Mg Capsule PO 01/15/24 20:59 150 mg BID TALAT Administration Promethazine HCl/Dextromethorphan 5 ml 12/17/23 17:52 12/18/23 03:30 Promethazine/Dm Syrup 5 Ml Dose PO 01/16/24 17:51 5 ml Q6HR PRN Administration COUGH Protocol Ranolazine 1,000 mg 12/16/23 21:00 12/18/23 09:09 Ranolazine 500 Mg Hector (Non Formulary) PO 01/15/24 20:59 1,000 mg BID TALAT Administration Valsartan 40 mg 12/16/23 21:00 12/18/23 08:58 Valsartan 40 Mg Tablet PO 01/15/24 20:59 40 mg BID TALAT Administration Plan Ms. 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 Patient is admitted to the hospital for the management of acute hypoxic respiratory failure and sepsis secondary to pneumonia. #Acute hypoxic respiratory failure in the setting of #Sepsis, secondary to #Pneumonia, bilateral and diffuse -SIRS 03/12: T 100.7, WBC 21.1 -On arrival Pt. was saturating at 88% on 10 oxygen via oxy-mask -Presents with shortness of breath, chest tightness, and congestion after initially being diagnosed with strep throat now requiring oxygen. -CXR: diffuse, extensive bilateral pneumonia. -Given 1x dose of ceftriaxone in ED. Plan: -Azithromycin 500 mg IV daily 12/16- -Ceftriaxone 1 g IV daily 12/16- -Vancomycin - 12/16-D/c after MRSA negative -IV fluids not indicated currently with acute CHF exacerbation, fluid overload state- Pt. is requiring diuresis -Duonebs as needed -Acapella device (chest physiotherapy) as needed -Solu-Medrol daily -Follow-up blood culture - no growth -urine cultures pending -MRSA -pending -RSV- negative #Acute CHF exacerbation #Fluid overload #HFpEF -PT. has a history of CHF with preserved ejection fraction , echo 09/2022: mild LVH, EF 55-60%. -No crackles appreciated on exam, no lower extremity edema. -BNP 411 Plan: -Continue diuresis with Lasix 40 mg IV daily -repeat echo ordered - -Fluid restriction 1200 cc -Carvedilol 12.5 mg BID -Strict I/O #Hypokalemia -K 3.2 on admission. Today K 3.3 -80 meq given -monitor daily CMP #CAD #S/p CABG Troponin negative. -Aspirin 81 mg daily -Ranolazine 1 g PO BID #Peripheral vascular disease #History of recurrent clots -Currently undergoing outpatient evaluation. -Pradaxa 150 mg PO BID #Hypertension -Valsartan 40 mg BID -Carvedilol 12.5 BID #Diabetes mellitus, insulin-dependent A1c 7.7% 05/2023. Takes home basaglar 50 units HS. -SSI ACHS -Follow-up A1c #Peripheral neuropathy #Chronic pain -Also has home oxycodone, pending [facility] rec. -Pregabalin 140 mg PO BID -Fentanyl 50 mcg topical q3d pending med rec Disposition: Med tele Diet: cardiac DVT prophylaxis: pradaxa GI prophylaxis: not indicated Assessment and plan discussed with my senior resident Dr. Quigley & attending physician Dr. Daniel Lr (PGY-1)- Internal medicine resident Attending Provider Attestation/Addendum I reviewed labs, imaging, EKG, home medications and prior available records. Face to face evaluation was performed by me. I have personally examined the patient and discussed assessment and plan with the IM team. I reviewed the resident note and agree with the plan with exceptions as below. Acute hypoxic respiratory failure: Not improving. She is on high flow nasal cannula. In the setting of CHF exacerbation versus bilateral pneumonia. Patient was wheezing for which we started DuoNebs and IV Solu-Medrol. Started Acapella device. Continue IV Lasix. Continue vancomycin/ceftriaxone/azithromycin. Follow-up cultures and MRSA test. CHF exacerbation: In the setting of history of heart failure with preserved EF. Diuresis as above. Replete potassium as needed. Monitor I's and O's. Bilateral pneumonia: As above. History of recurrent clotting events: Resume home anticoagulation. Outpatient workup with hematology.
--- NOTE | 2023-12-18 10:41 | ECHO_ITS ---
Transthoracic Echo Report Ht (in): 70 Wt (lb): 190 Exam Location: Portable Status: Inpatient Flat Ironer: Jocelyn Penaloza Indications: Procedure Performed: BP: 142 / 71 HR: 70 Rhythm: Sinus Technical Quality: Technically difficult study MEASUREMENTS (Male / Female) Normal Values 2D ECHO LV Diastolic Diameter PLAX 4.8 cm 4.2 - 5.9 / 3.9 - 5.3 cm LV Systolic Diameter PLAX 3.5 cm IVS Diastolic Thickness 1.0 cm 0.6 - 1.0 / 0.6 - 0.9 cm LVPW Diastolic Thickness 1.0 cm 0.6 - 1.0 / 0.6 - 0.9 cm LV Relative Wall Thickness 0.4 LVOT Diameter 1.9 cm LA Volume Index 29.6 cm?/m? 16 - 28 cm?/m? Ascending Aorta Diameter 2.9 cm M-MODE Aortic Root Diameter MM 2.6 cm LA Systolic Diameter MM 4.3 cm LA Ao Ratio MM 1.7 AV Cusp Separation MM 1.9 cm DOPPLER AV Peak Velocity 165.0 cm/s AV Peak Gradient 10.9 mmHg AV Mean Gradient 4.0 mmHg AV Velocity Time Integral 37.4 cm LVOT Peak Velocity 114.0 cm/s LVOT Peak Gradient 5.2 mmHg LVOT Velocity Time Integral 24.3 cm LVOT Cardiac Index 2320.5 cm?/min?m? AV Area Cont Eq vti 1.8 cm? AV Area Cont Eq pk 2.0 cm? MV Peak Velocity 136.0 cm/s MV Peak Gradient 7.4 mmHg MV Mean Velocity 73.9 cm/s MV Mean Gradient 3.0 mmHg MV Area PHT 3.3 cm? Mitral E Point Velocity 90.7 cm/s Mitral A Point Velocity 81.5 cm/s Mitral E to A Ratio 1.1 LV E' Lateral Velocity 5.7 cm/s Mitral E to LV E' Lateral Ratio 16.0 LV E' Septal Velocity 4.0 cm/s Mitral E to LV E' Septal Ratio 22.5 FINDINGS Left Ventricle Normal left ventricular size, systolic function with no obvious regional wall motion abnormalities. Mild LVH. The ejection fraction is visually estimated at 55-60 %. Right Ventricle The right ventricle is normal in size and systolic function. Left Atrium The left atrium is normal by two-dimensional, color flow and Doppler imaging with no structural abnormalities, no thrombus formation present. Right Atrium The right atrium is normal by two-dimensional imaging, color flow and Doppler imaging with no struct ural abnormalities, no thrombus formation present. Atrial Septum The interatrial septum appears normal with no evidence of a shunt. Aorta The aorta is normal by two-dimensional, color flow and Doppler interrogation. Mitral Valve The mitral valve is normal by two-dimensional, color flow and Doppler interrogation. There is no sig nificant mitral valve regurgitation. Aortic Valve The aortic valve is trileaflet and normal by two-dimensional, color flow and Doppler interrogation. There is no significant aortic valve regurgitation. Tricuspid Valve The tricuspid valve is normal by two-dimensional, color flow and Doppler interrogation. There is no significant tricuspid valve regurgitation. Pulmonic Valve There is no significant pulmonic valve regurgitation. Vessels The pulmonary artery appears normal. The inferior vena cava pulmonary and hepatic veins appear analilia l. Pericardium The pericardium is normal by two-dimensional imaging. There is no significant pericardial effusion. CONCLUSIONS Indication: CHF Normal LV size and function. Mild LVH. Estimated EF 55-60%. Stage 1 diastolic dysfunction Normal RV size and function. No evidence of any valvular abnormilites. Mega German (Electronically Signed) Final Date: 19 December 2023 14:47
[2023-12-18] MEDS: POTASSIUM CHLORIDE 20 mEq TABCR 40 MEQ PO ×2 (10:53→16:35)
[2023-12-18] MEDS: VANCOMYCIN/D5W 1,250 MG IVPB 250 ML 120 MG IV ×2 (14:23→20:41)
--- NOTE | 2023-12-18 14:40 | PC.SS ---
Kecia Fuentes is a 43 Year old female admitted for Fever. SS met face to face with patient at bedside to discuss discharge plan. Patient appeared alert and oriented to place time and situation. Patient was able to verify demographic information. Patient reports she lives at home with her step dad and daughter who she reports is her [facility] provider, patient gets 182 hrs a month. Patient had her right foot amputated and therefore needs assistance completing ADL's patient Choice of pharmacy is [facility]. SS inquired about providing resources to patient for methamphetamine use and marijuana, however patient declined resources. Patient reports she does not have a PCP. At time of discharge patient will return home. Next of Kin: friend, Eloise Fraser [phone] Discharge plan: home
[2023-12-18] MEDS: AZITHROMYCIN 250 MG TABLET 500 MG PO (20:35)
[2023-12-18] MEDS: cefTRIAXone/D5w 1gm IV premix 50 ML IV (20:41)
[2023-12-19] VITALS (21 sets, daily range): BP systolic 129–148; BP diastolic 52–75; PULSE 53–107; RESP 15–22; TEMP 36–36.3; O2SAT 94–98
[2023-12-19] MEDS: MORPHINE SULF INJ 10 MG/ML VIAL 2 MG IVP ×5 (01:32→20:43)
[2023-12-19] MEDS: VANCOMYCIN/D5W 1,250 MG IVPB 250 ML 120 MG IV (05:19)
[2023-12-19 05:48] LABS: Basophils # (Auto) 0.1 Thou/mm3 (0.0-0.2); Basophils % (Auto) 0 % (0-2.5); Eosinophils % (Auto) 0 % (0-10); Hematocrit 33.8 % (36.0-46.0); Hemoglobin 11.7 g/dL (12.0-16.0); Immature Granulocytes % (Auto) 1 % (0-0); Lymphocytes # (Auto) 1.7 Thou/mm3 (1.0-4.8); Lymphocytes % (Auto) 8 % (10-50); Mean Corpuscular HGB Conc 34.6 g/dl (31.0-37.0); Mean Corpuscular Hemoglobin 31.8 pg (25.0-35.0); Mean Corpuscular Volume 92 fL (80-100); Monocytes # (Auto) 1.3 Thou/mm3 (0.0-0.8); Monocytes % (Auto) 6 % (0-12); Neutrophils # (Auto) 17.8 Thou/mm3 (1.8-7.7); Neutrophils % (Auto) 84 % (37-80); Nucleated Red Blood Cell % 0 /100 WBC (0); Platelet Count 304 Thou/mm3 (140-440); RDW Standard Deviation 43.3 fL (36.4-46.3); Red Blood Count 3.68 Miln/mm3 (4.00-5.20)
[2023-12-19] MEDS: ALBUTEROL/IPRATROPIUM (Duoneb) RT SOL 3 ML NEBU INH ×3 (05:48→22:42)
[2023-12-19 05:49] LABS: White Blood Count 21.1 Thou/mm3 (3.6-11.0)
[2023-12-19 06:32] LABS: Anion Gap 6 (7-16); BUN/Creatinine Ratio 29 Ratio (12-20); Blood Urea Nitrogen 20 mg/dL (9-23); Calcium 9.1 mg/dL (8.3-10.6); Carbon Dioxide 21.9 mMol/L (20.0-31.0); Chloride 107 mMol/L (98-107); Creatinine (Component) 0.7 mg/dL (0.6-1.3); Estimated Creatinine Clearance 123.6 mL/min (>60); Glucose 285 mg/dL (74-106); Osmolality,Calculated 282 (275-295); Potassium 3.9 mMol/L (3.4-5.1); Sodium 135 mMol/L (136-145); eGFR > 60 See Note
[2023-12-19] MEDS: INSULIN LISPRO (AdmeLOG) 1 UNIT/0.01 ML UNIT SC ×3 (07:30→16:17)
[2023-12-19] MEDS: PREGABALIN 75 MG CAPSULE 150 MG PO ×2 (09:17→20:42)
[2023-12-19] MEDS: carVEDILOL 12.5 MG TABLET PO ×2 (09:17→17:37)
[2023-12-19] MEDS: VALSARTAN 40 MG TABLET PO ×2 (09:18→20:41)
[2023-12-19] MEDS: FUROSEMIDE INJ 10 MG/ML 4ML VIAL 40 MG IVP (09:18)
[2023-12-19] MEDS: ASPIRIN EC 81 MG TABEC PO (09:18)
[2023-12-19] MEDS: RANOLAZINE 500 MG TABER (NON FORMULARY) 1000 MG PO ×2 (09:19→20:42)
[2023-12-19] MEDS: PRADAXA 150 MG PO ×2 (09:19→20:46)
--- NOTE | 2023-12-19 10:07 | ESPR_ITS ---
<Statement entered by Juanito Dupree DO - 12/19/23 21:17> Senior attestation: Patient was examined and case was reviewed with team including attending physician. Note reviewed, I agree with most of its contents and agree with the patient's care. Patient improving, has been weaning down HFNC today with goal of transitioning to nasal cannula if tolerated. Patient have been started on IV steroids yesterday, may account for hyperglycemia findings. Will continue with insulin sliding scale for now, will add long-acting insulin glargine based on the daily insulin needs. Continue diuresis, echo results pending. Juanito Dupree DO PGY-3 Documentation for date of: 12/19/23 Subjective Subjective Interval history: 12/16: Patient was admitted overnight, patient was seen and examined at bedside this morning. Patient is continuing to have congestion and chest tightness but no chest pain. Patient states that most of her symptoms are related to cough with yellowish phlegm and shortness of breath requiring oxygen and breathing treatments continuously. Patient denied fever, chills, sore throat. Patient states that she is nauseous but denies vomiting. Patient denies symptoms of UTI such as dysuria burning or urgency. Patient requested Acapella device therapy which she has previously used with the respiratory therapist. 12/17: Overnight patient saturating in the low 80s therefore patient was switched to high flow oxygen. Patient then developed anxiety and panic type because of having bleeding with the nasal cannula which she is not used to. Patient understands that she needs send to be able to breathe and is very uncomfortable and is still getting used to it during sleep. Patient is seen and examined at bedside this morning she is on 20L high flow oxygen via nasal cannula saturating at 70%. Patient states that she was unable to obtain a small amount feels like her throat is scratchy and tightening and states that this is a chronic problem. Patient denies any allergies, choking on food or liquids. She states that this is a chronic problem for her and she feels like it is just difficult to swallow and feels slight burning sensation when she tries to swallow liquid. Patient attributes her symptoms to recent strep throat infection and requested some Solu-Medrol which helps her with her symptoms. 12/18: No overnight events, patient is seen and examined at bedside. Patient had significant improvement in appearance from yesterday, she was comfortably laying in bed on high flow oxygen. Patient states that she finally slept really well last night and denies discomfort from the shortness of breath as long as she has the nasal cannula on. Patient states that Solu-Medrol helped her breathe better. Patient denies chest pain, shortness of breath at rest, denies chest tightness or congestion. Patient denies nausea vomiting and denies bowel movement since hospitalization but patient states that normally she has a bowel movement once a week. Patient requesting if Solu-Medrol could be switched to twice daily so she can get a dose at night. Patient also states that her blood glucose levels are high because she does not receive her insulin at night. No other complaints. Exam Vital Signs Temp Pulse Resp BP Pulse Ox O2 Del Method O2 Flow Rate 97.4 F 70 16 142/71 H 95 High Flow Nasal Cannula 18 12/19/23 07:56 12/19/23 09:19 12/19/23 07:56 12/19/23 09:19 12/19/23 07:56 12/19/23 07:56 12/19/23 07:56 FiO2 60 12/19/23 07:56 Narrative Exam GENERAL: A&Ox3 . 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 mucous membranes moist. Eyes open, symmetrical, & clear HEART: Normal Heart Sounds LUNGS: bilateral wheezing on auscultation- improving from yesterday ABDOMEN: soft, non-distended, non-tender, bowel sounds heard, no guarding or rebound tenderness SKIN: No Rash or ecchymoses EXTREMITIES: No edema, tenderness, below-knee amputation of left lower extremity Objective Labs 12/19/23 05:07 12/19/23 05:07 Labs: Laboratory Results - last 24 hr 12/19/23 05:07 WBC 21.1 H RBC 3.68 L Hgb 11.7 L Hct 33.8 L MCV 92 MCH 31.8 MCHC 34.6 RDW Std Deviation 43.3 Plt Count 304 Neut % (Auto) 84 H Lymph % (Auto) 8 L [place] % (Auto) 6 Eos % (Auto) 0 Baso % (Auto) 0 Neut # (Auto) 17.8 H Lymph # (Auto) 1.7 [place] # (Auto) 1.3 H Eos # (Auto) 0.0 Baso # (Auto) 0.1 Immature Gran # (Auto) 0.20 H Absolute Nucleated RBC 0.00 Immature Gran % 1 H Nucleated RBC % 0 Sodium 135 L Potassium 3.9 D Chloride 107 Carbon Dioxide 21.9 Anion Gap 6 L BUN 20 Creatinine 0.7 Estim Creat Clear Calc 123.6 eGFR > 60 BUN/Creatinine Ratio 29 H Glucose 285 H D Calculated Osmolality 282 Calcium 9.1 Quality Measures Quality Measures sepsis Current suspected stage: ruled out Possible source: pulmonary Blood cultures ordered: yes Antibiotic ordered: Yes and none Assessment & Plan Assessment Current Active Medications: Generic Name Dose Route Start Last Admin Trade Name Freq PRN Reason Stop Dose Admin Albuterol/Ipratropium 3 ml 12/16/23 20:28 12/19/23 05:48 Albuterol/Ipratropium (Duoneb) Rt Rocio 3 Ml Nebu INH 01/15/24 20:27 3 ml Q2HR PRN Administration SHORTNESS OF BREATH OR WHEEZE Aspirin 81 mg 12/17/23 09:00 12/19/23 09:18 Aspirin Ec 81 Mg Tabec PO 01/16/24 08:59 81 mg QDAY TALAT Administration Azithromycin 500 mg 12/17/23 21:00 12/18/23 20:35 Azithromycin 250 Mg Tablet PO 12/24/23 20:59 500 mg 2100 TALAT Administration Protocol Carvedilol 12.5 mg 12/17/23 08:00 12/19/23 09:17 Carvedilol 12.5 Mg Tablet PO 01/16/24 07:59 12.5 mg BIDWM TALAT Administration Pradaxa 150mg 0 ea 12/17/23 11:00 12/19/23 09:19 Capsule PO 01/16/24 10:59 1 capsule BID TALAT Administration Dextrose 25 ml 12/16/23 22:25 Dextrose 50%-Water Inj 50 Ml Syringe IV 01/15/24 22:24 Q15MIN PRN BG 50-70 responsive npo pt Dextrose 50 ml 12/16/23 22:25 Dextrose 50%-Water Inj 50 Ml Syringe IV 01/15/24 22:24 Q15MIN PRN BG <50 OR BG <70 & pt unresponsive Fentanyl 50 mcg 12/17/23 09:00 12/17/23 09:16 Fentanyl 50 Mcg Transdermal Patch TOP 12/22/23 08:59 50 mcg Q3D TALAT Administration Protocol Furosemide 40 mg 12/17/23 09:00 12/19/23 09:18 Furosemide Inj 10 Mg/Ml 4ml Vial IVP 01/16/24 08:59 40 mg QDAY TALAT Administration Glucagon 1 mg 12/16/23 22:25 Glucagon Inj 1 Mg Vial IM Q15MIN PRN BG <70, and no IV access Guaifenesin 100 mg 12/18/23 10:45 Guaifenesin Syrup 200 Mg/10 Ml Udc PO 01/17/24 03:43 QID PRN COUGH Protocol Ceftriaxone Sodium/Dextrose 50 mls @ 100 mls/hr 12/17/23 21:00 12/18/23 20:41 Rocephin/D5w 1gm Iv Premix IV 12/24/23 20:59 100 mls/hr DAILY@2100 TALAT Administration Vancomycin HCl/Dextrose 250 mls @ 120 mls/hr 12/18/23 14:00 12/19/23 05:19 Vancomycin/D5w 1,250 Mg Ivpb IV 12/25/23 13:59 120 mls/hr Q8HR TALAT Administration Insulin Human Lispro 0 unit 12/17/23 07:30 12/19/23 07:30 Insulin Lispro (Admelog) 1 Unit/0.01 Ml Unit SC 01/16/24 07:29 3 unit ACHS TALAT Administration Protocol Methylprednisolone Sodium Succinate 40 mg 12/18/23 10:45 12/19/23 09:18 Methylprednisolone Sod Succ 40 Mg Vial IVP 12/25/23 10:44 40 mg QDAY TALAT Administration Morphine Sulfate 2 mg 12/17/23 08:54 12/19/23 10:02 Morphine Sulf Inj 10 Mg/Ml Vial IVP 12/22/23 08:53 2 mg Q4HR PRN Administration Pain 7-10 Oxycodone HCl 5 mg 12/17/23 08:57 Oxycodone Hcl 5 Mg Ir Tab PO 12/22/23 00:13 Q6HR PRN PAIN 1-6 (mild-mod Pharmacy Consult 1 each 12/16/23 20:00 Vancomycin Pharmacy To Dose 1 Each Each IV 01/15/24 19:59 QDAY PRN PROTOCOL Pregabalin 150 mg 12/16/23 21:00 12/19/23 09:17 Pregabalin 75 Mg Capsule PO 01/15/24 20:59 150 mg BID TALAT Administration Promethazine HCl/Dextromethorphan 5 ml 12/17/23 17:52 12/18/23 03:30 Promethazine/Dm Syrup 5 Ml Dose PO 01/16/24 17:51 5 ml Q6HR PRN Administration COUGH Protocol Ranolazine 1,000 mg 12/16/23 21:00 12/19/23 09:19 Ranolazine 500 Mg Hector (Non Formulary) PO 01/15/24 20:59 1,000 mg BID TALAT Administration Valsartan 40 mg 12/16/23 21:00 12/19/23 09:18 Valsartan 40 Mg Tablet PO 01/15/24 20:59 40 mg BID TALAT Administration Plan Ms. 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 Patient is admitted to the hospital for the management of acute hypoxic respiratory failure and sepsis secondary to pneumonia. #Acute hypoxic respiratory failure in the setting of #Sepsis, secondary to #Pneumonia, bilateral and diffuse -SIRS 2/: T 100.7, WBC 21.1 -On arrival Pt. was saturating at 88% on 10 oxygen via oxy-mask- now on High flow oxygen -Presents with shortness of breath, chest tightness, and congestion after initially being diagnosed with strep throat now requiring oxygen. -CXR: diffuse, extensive bilateral pneumonia. -Given 1x dose of ceftriaxone in ED. Plan: -Azithromycin 500 mg IV daily 12/16- -Ceftriaxone 1 g IV daily 12/16- -D/C Vancomycin since MRSA negative -IV fluids not indicated currently with acute CHF exacerbation, fluid overload state- Pt. is requiring diuresis -Duonebs as needed -Acapella device (chest physiotherapy) as needed -Solu-Medrol daily -Follow-up blood culture - no growth -urine cultures-contamination collonies -MRSA -negative -RSV- negative -Cocci -pending #Acute CHF exacerbation #Fluid overload #HFpEF -PT. has a history of CHF with preserved ejection fraction , echo 09/2022: mild LVH, EF 55-60%. -No crackles appreciated on exam, no lower extremity edema. -BNP 411 Plan: -Continue diuresis with Lasix 40 mg IV daily -repeat echo ordered -pending -Fluid restriction 1200 cc -Carvedilol 12.5 mg BID -Strict I/O #Hypokalemia- resolved -K 3.2 on admission. Today K 3.9 -80 meq given -monitor daily CMP #CAD #S/p CABG Troponin negative. -Aspirin 81 mg daily -Ranolazine 1 g PO BID #Peripheral vascular disease #History of recurrent clots -Currently undergoing outpatient evaluation. -Pradaxa 150 mg PO BID #Primary Hypertension -Valsartan 40 mg BID -Carvedilol 12.5 BID #Diabetes mellitus, insulin-dependent A1c 7.7% 05/2023. Takes home basilar 50 units HS. -SSI ACHS -Follow-up A1c #Peripheral neuropathy #Chronic pain -Also has home oxycodone, pending [facility] rec. -Pregabalin 140 mg PO BID -Fentanyl 50 mcg topical q3d pending med rec Disposition: Med tele Diet: cardiac DVT prophylaxis: pradaxa GI prophylaxis: not indicated Assessment and plan discussed with my senior resident Dr. Dupree & attending physician Dr. Daniel Lr (PGY-1)- Internal medicine resident Attending Provider Attestation/Addendum I reviewed labs, imaging, EKG, home medications and prior available records. Face to face evaluation was performed by me. I have personally examined the patient and discussed assessment and plan with the IM team. I reviewed the resident note and agree with the plan with exceptions as below. Acute hypoxic respiratory failure: She is on high flow nasal cannula but her oxygen requirements are improving. In the setting of CHF exacerbation versus bilateral pneumonia. Patient was wheezing for which we started DuoNebs and IV Solu-Medrol, now wheezing improved. Started Acapella device. Continue IV Lasix. Continue ceftriaxone/azithromycin. Follow-up cultures and MRSA test. MRSA test is negative for which vancomycin was discontinued. Sent cocci IgM. CHF exacerbation: In the setting of history of heart failure with preserved EF. Diuresis as above. Replete potassium as needed. Monitor I's and O's. Bilateral pneumonia: As above. History of recurrent clotting events: Resume home anticoagulation. Outpatient workup with hematology.
[2023-12-19 13:59] LABS: Vancomycin,Trough 5.5 mcg/mL (5.0-10.0)
[2023-12-19 14:27] LABS: Cocci Serology, IgM Negative (Negative)
[2023-12-19] MEDS: AZITHROMYCIN 250 MG TABLET 500 MG PO (20:41)
[2023-12-19] MEDS: INSULIN LISPRO (AdmeLOG) 1 UNIT/0.01 ML UNIT 8 UNIT SC (21:34)
[2023-12-19] MEDS: cefTRIAXone/D5w 1gm IV premix 50 ML IV (21:38)
[2023-12-20] VITALS (10 sets, daily range): BP systolic 131–166; BP diastolic 69–84; PULSE 48–83; RESP 15–19; TEMP 36–36.4; O2SAT 91–98; BMI 27.5
[2023-12-20] MEDS: MORPHINE SULF INJ 10 MG/ML VIAL 2 MG IVP ×3 (02:18→11:36)
--- NOTE | 2023-12-20 03:20 | PC.NURSE ---
[facility] 0200 to 0309.
[2023-12-20] MEDS: INSULIN LISPRO (AdmeLOG) 1 UNIT/0.01 ML UNIT SC ×2 (07:34→11:37)
[2023-12-20] MEDS: RANOLAZINE 500 MG TABER (NON FORMULARY) 1000 MG PO (09:04)
[2023-12-20] MEDS: FUROSEMIDE INJ 10 MG/ML 4ML VIAL 40 MG IVP (09:04)
[2023-12-20] MEDS: PREGABALIN 75 MG CAPSULE 150 MG PO (09:06)
[2023-12-20] MEDS: ASPIRIN EC 81 MG TABEC PO (09:06)
[2023-12-20] MEDS: VALSARTAN 40 MG TABLET PO (09:06)
[2023-12-20] MEDS: PRADAXA 150 MG PO (09:07)
[2023-12-20] MEDS: fentaNYL 50 mCg TRANSDERMAL PATCH TOP (09:14)
[2023-12-20 10:05] LABS: Basophils % (Auto) 0 % (0-2.5); Eosinophils % (Auto) 0 % (0-10); Hematocrit 34.7 % (36.0-46.0); Hemoglobin 11.7 g/dL (12.0-16.0); Immature Granulocytes % (Auto) 1 % (0-0); Immature Granulocytes Auto 0.23 Thou/mm3 (0.00-0.00); Lymphocytes # (Auto) 3.1 Thou/mm3 (1.0-4.8); Lymphocytes % (Auto) 15 % (10-50); Mean Corpuscular HGB Conc 33.7 g/dl (31.0-37.0); Mean Corpuscular Volume 92 fL (80-100); Monocytes # (Auto) 1.3 Thou/mm3 (0.0-0.8); Monocytes % (Auto) 6 % (0-12); Neutrophils # (Auto) 16.4 Thou/mm3 (1.8-7.7); Neutrophils % (Auto) 78 % (37-80); Nucleated Red Blood Cell % 0 /100 WBC (0); Platelet Count 362 Thou/mm3 (140-440); RDW Standard Deviation 43.7 fL (36.4-46.3); Red Blood Count 3.78 Miln/mm3 (4.00-5.20)
[2023-12-20 10:25] LABS: Alanine Aminotransferase 14 U/L (10-49); Albumin, Serum 4.1 gm/dL (3.5-5.0); Albumin/Globulin Ratio 1.4 (1.2-2.2); Alkaline Phosphatase 111 U/L (46-116); Anion Gap 6 (7-16); Aspartate Amino Transferase < 10 U/L (0-34); BUN/Creatinine Ratio 39 Ratio (12-20); Bilirubin,Total 0.3 mg/dL (0.3-1.2); Blood Urea Nitrogen 27 mg/dL (9-23); Calcium 9.2 mg/dL (8.3-10.6); Calcium (Corrected) 9.2 mg/dL (8.5-10.1); Carbon Dioxide 24.7 mMol/L (20.0-31.0); Chloride 104 mMol/L (98-107); Creatinine (Component) 0.7 mg/dL (0.6-1.3); Estimated Creatinine Clearance 124.3 mL/min (>60); Globulin 2.9 gm/dL (2.3-3.5); Glucose 298 mg/dL (74-106); Osmolality,Calculated 286 (275-295); Potassium 3.9 mMol/L (3.4-5.1); Sodium 135 mMol/L (136-145); eGFR > 60 See Note
--- NOTE | 2023-12-20 10:26 | PC.SS ---
Rounding: Wean off High Flow
[2023-12-20 14:26] LABS: Cocci Serology, IgG Negative (Negative)
--- NOTE | 2023-12-20 15:02 | ESDS_ITS ---
<Statement entered by Juanito Dupree DO - 12/20/23 17:26> Senior attestation: Patient was examined and case was reviewed with team including attending physician. Note reviewed, I agree with most of its contents and agree with the patient's care. Juanito Dupree DO PGY-3 Planned Discharge Date 12/20/23 DS: Providers Provider Date of admission: 12/16/23 20:24 Primary care physician: Hoang Hu MD Admitting Provider: Donny Crawford MD Attending Provider on Admission: Pelon Sanchez MD Attending Provider on DC: Leandro Lr MD Discharging Provider: Leandro Lr MD DS: Diagnosis Problem List Completed Was Problem List Reviewed/Reconciled?: Yes Hospital Course Hospital Course Hospital course: Ms. 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 Patient stated she was recently diagnosed with strep throat and was taking azithromycin prescribed by PCP. Patient is admitted to the hospital for the management of acute hypoxic respiratory failure and sepsis secondary to pneumonia. On admission patient was saturating at 88% on 10L of oxygen via oxime mask which was then switch to high flow oxygen. Over the course of hospitalization patient continued to require high flow oxygen. Chest x-ray findings included diffuse extensive bilateral pneumonia. Patient was started on azithromycin and ceftriaxone and vancomycin for the management of pneumonia. Vancomycin was DC'd after MRSA came back negative. Patient also received DuoNebs treatments, Acapella device, Solu-Medrol for shortness of breath and wheezing. Echocardiogram findings included estimated EF 55-60% Patient was also found to have fluid overload in the setting of acute CHF exacerbation and was started on Lasix. Patient continued to demonstrate symptomatic improvement and eventually required no oxygen and was saturating on room air. Patient's urine and blood culture had no growth. RSV and cocci was negative. Patient was hemodynamically stable and back to baseline and was ready to be discharged home. Patient is advised if symptoms recur or worsen to promptly return to the ED. Decrease carvedilol to 3.125 mg twice daily. Continue other home medications as prescribed. Start taking prednisone as instructed. Take azithromycin 1 tab tomorrow once and amoxicillin 1 tab every 8 hours for 3 more days. Use fluticasone/salmeterol inhaler twice daily. Use albuterol inhaler as needed for shortness of breath or wheezing. Follow up with PCP within 1-2 weeks. #Acute hypoxic respiratory failure #Sepsis #Pneumonia, bilateral and diffuse #Acute CHF exacerbation #Fluid overload #HFpEF #Hypokalemia- resolved #CAD S/p CABG #Peripheral vascular disease #History of recurrent clots #Primary Hypertension #Diabetes mellitus, insulin-dependent #Peripheral neuropathy #Chronic pain GENERAL: A&Ox3 . 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 mucous membranes moist. Eyes open, symmetrical, & clear HEART: Normal Heart Sounds LUNGS: bilateral wheezing on auscultation- improving from yesterday ABDOMEN: soft, non-distended, non-tender, bowel sounds heard, no guarding or rebound tenderness SKIN: No Rash or ecchymoses EXTREMITIES: No edema, tenderness, below-knee amputation of left lower extremity Assessment and plan discussed with my senior resident Dr. Dupree & attending physician Dr. Daniel Lr (PGY-1)- Internal medicine resident Time Spent with Patient Time attestation: Total time spent providing and/or coordinating discharge services: Exam Vital Signs Temp Pulse Resp BP Pulse Ox O2 Del Method O2 Flow Rate 96.8 F 53 L 16 166/72 H 91 L Room Air 4 12/20/23 14:00 12/20/23 14:00 12/20/23 14:00 12/20/23 14:00 12/20/23 14:00 12/20/23 14:00 12/20/23 08:00 FiO2 50 12/19/23 16:00 Discharge Plan Plan Patient Disposition: HOME (Self Care) Care Plan Goals: Decrease carvedilol to 3.125 mg twice daily. Continue other home medications as prescribed. Start taking prednisone as instructed. Take azithromycin 1 tab tomorrow once and amoxicillin 1 tab every 8 hours for 3 more days. Use fluticasone/salmeterol inhaler twice daily. Use albuterol inhaler as needed for shortness of breath or wheezing. Follow up with PCP within 1-2 weeks. Prescriptions/Referrals Prescriptions/Med Rec: New carvedilol 3.125 mg tablet 3.125 mg PO BID Qty: 60 0RF Rx Instructions: must administer with a meal/food fluticasone propion-salmeterol 55-14 mcg/actuation aerosol powdr breath activated 1 inh inhalation BID Qty: 1 0RF albuterol sulfate 90 mcg/actuation HFA aerosol inhaler 1 inh inhalation QID PRN (Reason: shortness of breath or wheezing) Qty: 6.7 0RF prednisone 5 mg tablets,dose pack 5 mg PO QDAY Qty: 21 0RF azithromycin 250 mg tablet 250 mg PO QDAY 1 Days Qty: 1 0RF amoxicillin 500 mg capsule 500 mg PO Q8H 3 Days Qty: 9 0RF Continued nitroglycerin [Nitrostat] 0.4 MG tablet, sublingual 0.4 mg SL PRN PRN (Reason: CHEST TIGHTNESS) Qty: 0 insulin glargine [Basaglar KwikPen U-100 Insulin] 100 unit/mL (3 mL) Insulin Pen 40 unit SUBCUT HS Rx Instructions: 35-40 units depending on blood sugar insulin lispro [Admelog SoloStar U-100 Insulin] 100 unit/mL Insulin Pen 25 unit SUBCUT AC fentanyl 50 mcg/hr Patch 72 Hour 50 mcg topical Q2D Patient Comments: CHANGE PATCH EVERY 48 HRS valsartan 80 mg Tablet 40 mg PO BID oxycodone 5 mg Tablet 5 mg PO Q6H PRN (Reason: Pain) amlodipine 5 mg tablet 5 mg PO QDAY PRN (Reason: Hypertension) furosemide [Lasix] 40 mg Tablet 80 mg PO FAHAD pregabalin [Lyrica] 75 mg Capsule 150 mg PO BID ranolazine 500 mg Tablet Extended Release 12 Hr 1,000 mg PO BID dabigatran etexilate [Pradaxa] 150 mg capsule 150 mg PO BID Patient Comments: TAKE 1 CAPSULE BY MOUTH TWICE A DAY Discontinued carvedilol 12.5 mg Tablet 12.5 mg PO BID Rx Instructions: must administer with a meal/food Referrals: Hoang Hu MD [Primary Care Provider] - Patient/Caregiver Discharge Instructions Education Materials: Treating Pneumonia, Asthma Print Language: Sammarinese Stand Alone Forms: [employer] Award Info., Patient Portal Info Letter Discharge Order Discharge Orders: Discharge (Routine); Ordered 12/20/23 Ordered By: Lobo Quigley Quality Discharge Quality Measures sepsis Attestestation MD Attestation I reviewed labs, imaging, EKG, home medications and prior available records. Face to face evaluation was performed by me. I have personally examined the patient and discussed assessment and plan with the IM team. I reviewed the resident note and agree with the plan with exceptions as below. Acute hypoxic respiratory failure: She is on high flow nasal cannula but her oxygen requirements are improving. In the setting of CHF exacerbation versus bilateral pneumonia. Patient was wheezing for which we started DuoNebs and IV Solu-Medrol, now wheezing improved. Started Acapella device. Continue oral Lasix on discharge along with fluid restriction. Will discharge on amoxicillin/azithromycin. MRSA test is negative for which vancomycin was discontinued. Sent cocci IgM: Negative. CHF exacerbation: In the setting of history of heart failure with preserved EF. Continue home Lasix in addition to fluid restriction. Outpatient follow-up with cardiology. Bilateral pneumonia: Management as above Asthma exacerbation: Will discharge the patient on LABA/inhaled corticosteroid in addition to albuterol inhaler as needed. History of recurrent clotting events: Resume home anticoagulation. Outpatient workup with hematology. Bradycardia: Decreased home Coreg dose to 3.125 twice daily. Monitor BP at home. Leukocytosis: Likely in the setting of steroid use. Monitor CBC in 1 week. Time spent is 40 minutes. More than 50% of the time was spent on patient education and coordination of care.
== END 2023-12-20 14:00 | disposition home or self-care (01) | DRG 871 ==
LOC: SERX 20:09 → SERHOLD 20:42 → S2NX 22:45
PROVIDERS: Emergency Medicine; Student in an Organized Health Care Education/Training Program; Admitting Provider Internal Medicine; Emergency Provider Emergency Medicine; PCP Family Medicine; Visit Provider Student in an Organized Health Care Education/Training Program
DX: A41.9 Sepsis, unspecified organism (principal); I50.33 Acute on chronic diastolic (congestive) heart failure; J18.9 Pneumonia, unspecified organism; J96.01 Acute respiratory failure with hypoxia; I11.0 Hypertensive heart disease with heart failure; E11.51 Type 2 diabetes mellitus with diabetic peripheral angiopathy without gangrene; I25.10 Atherosclerotic heart disease of native coronary artery without angina pectoris; M40.209 Unspecified kyphosis, site unspecified; F17.210 Nicotine dependence, cigarettes, uncomplicated; Z89.612 Acquired absence of left leg above knee; E87.6 Hypokalemia; Z79.4 Long term (current) use of insulin; G89.29 Other chronic pain; E11.42 Type 2 diabetes mellitus with diabetic polyneuropathy; Z66 Do not resuscitate; E11.65 Type 2 diabetes mellitus with hyperglycemia; Z95.1 Presence of aortocoronary bypass graft; Z86.73 Personal history of transient ischemic attack (TIA), and cerebral infarction without residual deficits; F41.9 Anxiety disorder, unspecified
CPT/HCPCS: 36415; 71045; 80048; 80053; 80202; 81001; 83036; 83605; 83880; 84145; 84484; 85025; 85379; 85610; 85730; 86331; 86635; 87040; 87081; 87086; 87400; 87634; 87811; 93306; 94640; 94664; 94667; 96365; 96375; 99285; A9270; J0456; J0696; J1815; J1940; J2270; J2405; J2919; J3370; J3480; J7050

== ENCOUNTER → 2023-12-27 | Outpatient (CLI) | payer BC, MEDICAID, SELFPAY ==
[2023-12-27 16:42] LABS: Basophils # (Auto) 0.1 Thou/mm3 (0.0-0.2); Basophils % (Auto) 1 % (0-2.5); Eosinophils # (Auto) 0.2 Thou/mm3 (0.0-0.5); Eosinophils % (Auto) 1 % (0-10); Hematocrit 39.8 % (36.0-46.0); Hemoglobin 13.7 g/dL (12.0-16.0); Immature Granulocytes % (Auto) 1 % (0-0); Immature Granulocytes Auto 0.13 Thou/mm3 (0.00-0.00); Lymphocytes # (Auto) 5.4 Thou/mm3 (1.0-4.8); Lymphocytes % (Auto) 31 % (10-50); Mean Corpuscular HGB Conc 34.4 g/dl (31.0-37.0); Mean Corpuscular Hemoglobin 31.1 pg (25.0-35.0); Mean Corpuscular Volume 90 fL (80-100); Monocytes # (Auto) 1.5 Thou/mm3 (0.0-0.8); Monocytes % (Auto) 8 % (0-12); Neutrophils # (Auto) 9.9 Thou/mm3 (1.8-7.7); Neutrophils % (Auto) 58 % (37-80); Nucleated Red Blood Cell % 0 /100 WBC (0); Platelet Count 425 Thou/mm3 (140-440); RDW Standard Deviation 45.4 fL (36.4-46.3); Red Blood Count 4.41 Miln/mm3 (4.00-5.20); White Blood Count 17.3 Thou/mm3 (3.6-11.0)
[2023-12-27 16:59] LABS: Blood Urea Nitrogen 14 mg/dL (9-23); Creatinine (Component) 0.7 mg/dL (0.6-1.3); eGFR > 60 See Note
== END | disposition home or self-care (01) ==
LOC: COPL 16:07
PROVIDERS: PCP Nurse Practitioner Family; Referring Provider Nurse Practitioner Family; Visit Provider Nurse Practitioner Family
DX: D72.829 Elevated white blood cell count, unspecified (principal); Z89.612 Acquired absence of left leg above knee
CPT/HCPCS: 36415; 82565; 84520; 85025

== ENCOUNTER → 2024-03-19 | Outpatient (CLI) | payer BC, MEDICAID, SELFPAY ==
[2024-03-19 17:20] LABS: Amphetamine/Methamp Scrn,U Negative (Negative); Barbiturate Screen,Urine Negative (Negative); Benzodiazepines Screen,Urine Negative (Negative); Benzoylecgonine Screen, Ur Negative (Negative); Fentanyl Screen,Urine Positive (Negative); Opiate Screen,Urine Negative (Negative); THC Screen,Urine Negative (Negative)
== END | disposition home or self-care (01) ==
LOC: SLDO 15:46
PROVIDERS: PCP Family Medicine; Referring Provider Family Medicine; Visit Provider Family Medicine
DX: M54.2 Cervicalgia (principal); Z71.51 Drug abuse counseling and surveillance of drug abuser
CPT/HCPCS: 80307

== ENCOUNTER → 2024-03-28 | Outpatient (CLI) | payer BC, MEDICAID, SELFPAY | END | disposition home or self-care (01) | LOC: SWHD 08:10 | PROVIDERS: PCP Family Medicine; Referring Provider Family Medicine; Visit Provider Student in an Organized Health Care Education/Training Program | DX: T81.89XA Other complications of procedures, not elsewhere classified, initial encounter (principal); L97.812 Non-pressure chronic ulcer of other part of right lower leg with fat layer exposed; E11.40 Type 2 diabetes mellitus with diabetic neuropathy, unspecified; Z79.4 Long term (current) use of insulin; Z86.16 Personal history of COVID-19; Z89.512 Acquired absence of left leg below knee; I82.409 Acute embolism and thrombosis of unspecified deep veins of unspecified lower extremity; I25.10 Atherosclerotic heart disease of native coronary artery without angina pectoris; I25.2 Old myocardial infarction; M19.09 Primary osteoarthritis, other specified site; I50.9 Heart failure, unspecified; M86.8X8 Other osteomyelitis, other site | CPT/HCPCS: 11042; 99213; A9270; G0463 ==

== ENCOUNTER → 2024-04-01 | Outpatient (CLI) | payer BC, MEDICAID, SELFPAY | END | disposition home or self-care (01) | PROVIDERS: PCP Family Medicine; Referring Provider Family Medicine; Visit Provider Surgery | DX: T81.89XA Other complications of procedures, not elsewhere classified, initial encounter (principal); L97.812 Non-pressure chronic ulcer of other part of right lower leg with fat layer exposed; E11.40 Type 2 diabetes mellitus with diabetic neuropathy, unspecified; Z79.4 Long term (current) use of insulin; Z86.16 Personal history of COVID-19; Z89.512 Acquired absence of left leg below knee; I82.409 Acute embolism and thrombosis of unspecified deep veins of unspecified lower extremity; I25.10 Atherosclerotic heart disease of native coronary artery without angina pectoris; I25.2 Old myocardial infarction; M19.09 Primary osteoarthritis, other specified site; I50.9 Heart failure, unspecified; M86.8X8 Other osteomyelitis, other site | CPT/HCPCS: 11042 ==

== ENCOUNTER → 2024-04-04 | Outpatient (CLI) | payer BC, MEDICAID, SELFPAY | END | disposition home or self-care (01) | PROVIDERS: PCP Family Medicine; Referring Provider Family Medicine; Visit Provider Student in an Organized Health Care Education/Training Program | DX: T81.89XA Other complications of procedures, not elsewhere classified, initial encounter (principal); L97.812 Non-pressure chronic ulcer of other part of right lower leg with fat layer exposed; E11.40 Type 2 diabetes mellitus with diabetic neuropathy, unspecified; Z79.4 Long term (current) use of insulin; Z86.16 Personal history of COVID-19; Z89.512 Acquired absence of left leg below knee; I25.10 Atherosclerotic heart disease of native coronary artery without angina pectoris; I25.2 Old myocardial infarction; M19.09 Primary osteoarthritis, other specified site; I50.9 Heart failure, unspecified; M86.8X8 Other osteomyelitis, other site | CPT/HCPCS: 29581 ==

== ENCOUNTER → 2024-04-18 | Outpatient (CLI) | payer BC, MEDICAID, SELFPAY | END | disposition home or self-care (01) | PROVIDERS: PCP Family Medicine; Referring Provider Family Medicine; Visit Provider Student in an Organized Health Care Education/Training Program | DX: T81.89XA Other complications of procedures, not elsewhere classified, initial encounter (principal); L97.812 Non-pressure chronic ulcer of other part of right lower leg with fat layer exposed; E11.40 Type 2 diabetes mellitus with diabetic neuropathy, unspecified; Z79.4 Long term (current) use of insulin; Z86.16 Personal history of COVID-19; Z89.512 Acquired absence of left leg below knee; I25.10 Atherosclerotic heart disease of native coronary artery without angina pectoris; I25.2 Old myocardial infarction; M19.09 Primary osteoarthritis, other specified site; I50.9 Heart failure, unspecified; M86.8X8 Other osteomyelitis, other site | CPT/HCPCS: 17250; 10060; J3490; A9270 ==

== ENCOUNTER → 2024-04-18 | Outpatient (CLI) | payer BC, MEDICAID, SELFPAY | END | disposition home or self-care (01) | LOC: SLDO 16:16 | PROVIDERS: Referring Provider Student in an Organized Health Care Education/Training Program; Visit Provider Student in an Organized Health Care Education/Training Program | DX: E11.622 Type 2 diabetes mellitus with other skin ulcer (principal) | CPT/HCPCS: 87070; 87075; 87077; 87186; 87205 ==

== ENCOUNTER → 2024-04-22 | Outpatient (CLI) | payer BC, MEDICAID, SELFPAY | END | disposition home or self-care (01) | LOC: SWHD 13:52 | PROVIDERS: PCP Family Medicine; Referring Provider Family Medicine; Visit Provider Student in an Organized Health Care Education/Training Program | DX: T81.89XA Other complications of procedures, not elsewhere classified, initial encounter (principal); L97.812 Non-pressure chronic ulcer of other part of right lower leg with fat layer exposed; E11.40 Type 2 diabetes mellitus with diabetic neuropathy, unspecified; Z79.4 Long term (current) use of insulin; Z86.16 Personal history of COVID-19; Z89.512 Acquired absence of left leg below knee; I25.10 Atherosclerotic heart disease of native coronary artery without angina pectoris; I25.2 Old myocardial infarction; M19.09 Primary osteoarthritis, other specified site; I50.9 Heart failure, unspecified; M86.8X8 Other osteomyelitis, other site; R60.0 Localized edema | CPT/HCPCS: 97597; 97598; A9270 ==

== ENCOUNTER → 2024-04-30 | Outpatient (CLI) | payer BC, MEDICAID, SELFPAY | END | disposition home or self-care (01) | LOC: SWHD 10:57 | PROVIDERS: PCP Family Medicine; Referring Provider Family Medicine; Visit Provider Student in an Organized Health Care Education/Training Program | DX: T81.89XA Other complications of procedures, not elsewhere classified, initial encounter (principal); L97.812 Non-pressure chronic ulcer of other part of right lower leg with fat layer exposed; E11.40 Type 2 diabetes mellitus with diabetic neuropathy, unspecified; Z79.4 Long term (current) use of insulin; Z86.16 Personal history of COVID-19; Z89.512 Acquired absence of left leg below knee; I25.10 Atherosclerotic heart disease of native coronary artery without angina pectoris; I25.2 Old myocardial infarction; M19.09 Primary osteoarthritis, other specified site; I50.9 Heart failure, unspecified; M86.8X8 Other osteomyelitis, other site; R60.0 Localized edema | CPT/HCPCS: 11042; A9270 ==

== ENCOUNTER → 2024-05-07 | Outpatient (CLI) | payer BC, MEDICAID, SELFPAY | END | disposition home or self-care (01) | LOC: SWHD 10:50 | PROVIDERS: PCP Family Medicine; Referring Provider Family Medicine; Visit Provider Student in an Organized Health Care Education/Training Program | DX: T81.89XA Other complications of procedures, not elsewhere classified, initial encounter (principal); L97.812 Non-pressure chronic ulcer of other part of right lower leg with fat layer exposed; R22.1 Localized swelling, mass and lump, neck; S91.101A Unspecified open wound of right great toe without damage to nail, initial encounter; X58.XXXA Exposure to other specified factors, initial encounter; E11.40 Type 2 diabetes mellitus with diabetic neuropathy, unspecified; Z79.4 Long term (current) use of insulin; Z86.16 Personal history of COVID-19; Z89.512 Acquired absence of left leg below knee; I25.10 Atherosclerotic heart disease of native coronary artery without angina pectoris; I25.2 Old myocardial infarction; M19.09 Primary osteoarthritis, other specified site; I50.9 Heart failure, unspecified; M86.8X8 Other osteomyelitis, other site; R60.0 Localized edema; N61.1 Abscess of the breast and nipple | CPT/HCPCS: 11042; A9270 ==

== ENCOUNTER → 2024-05-14 | Outpatient (CLI) | payer BC, MEDICAID, SELFPAY | END | disposition home or self-care (01) | LOC: SWHD 10:53 | PROVIDERS: PCP Family Medicine; Referring Provider Family Medicine; Visit Provider Student in an Organized Health Care Education/Training Program | DX: T81.89XA Other complications of procedures, not elsewhere classified, initial encounter (principal); L97.812 Non-pressure chronic ulcer of other part of right lower leg with fat layer exposed; R22.1 Localized swelling, mass and lump, neck; S91.101A Unspecified open wound of right great toe without damage to nail, initial encounter; X58.XXXA Exposure to other specified factors, initial encounter; E11.40 Type 2 diabetes mellitus with diabetic neuropathy, unspecified; Z79.4 Long term (current) use of insulin; Z86.16 Personal history of COVID-19; Z89.512 Acquired absence of left leg below knee; I25.10 Atherosclerotic heart disease of native coronary artery without angina pectoris; I25.2 Old myocardial infarction; M19.09 Primary osteoarthritis, other specified site; I50.9 Heart failure, unspecified; M86.8X8 Other osteomyelitis, other site; R60.0 Localized edema | CPT/HCPCS: 97597; A9270 ==

== ENCOUNTER → 2024-05-21 | Outpatient (CLI) | payer BC, MEDICAID, SELFPAY | END | disposition home or self-care (01) | LOC: SWHD 10:44 | PROVIDERS: PCP Family Medicine; Referring Provider Family Medicine; Visit Provider Student in an Organized Health Care Education/Training Program | DX: T81.89XA Other complications of procedures, not elsewhere classified, initial encounter (principal); L97.812 Non-pressure chronic ulcer of other part of right lower leg with fat layer exposed; R22.1 Localized swelling, mass and lump, neck; S91.101A Unspecified open wound of right great toe without damage to nail, initial encounter; X58.XXXA Exposure to other specified factors, initial encounter; E11.40 Type 2 diabetes mellitus with diabetic neuropathy, unspecified; Z86.16 Personal history of COVID-19; Z89.512 Acquired absence of left leg below knee; I25.10 Atherosclerotic heart disease of native coronary artery without angina pectoris; I25.2 Old myocardial infarction; M19.09 Primary osteoarthritis, other specified site; M86.8X8 Other osteomyelitis, other site; G06.0 Intracranial abscess and granuloma | CPT/HCPCS: 97597; A9270 ==

== ENCOUNTER → 2024-05-28 | Outpatient (CLI) | payer BC, MEDICAID, SELFPAY | END | disposition home or self-care (01) | LOC: SWHD 12:36 | PROVIDERS: PCP Family Medicine; Referring Provider Family Medicine; Visit Provider Surgery | DX: T81.89XA Other complications of procedures, not elsewhere classified, initial encounter (principal); L97.812 Non-pressure chronic ulcer of other part of right lower leg with fat layer exposed; R22.1 Localized swelling, mass and lump, neck; S91.101A Unspecified open wound of right great toe without damage to nail, initial encounter; X58.XXXA Exposure to other specified factors, initial encounter; E11.40 Type 2 diabetes mellitus with diabetic neuropathy, unspecified; Z86.16 Personal history of COVID-19; Z89.512 Acquired absence of left leg below knee; I25.10 Atherosclerotic heart disease of native coronary artery without angina pectoris; I25.2 Old myocardial infarction; M19.09 Primary osteoarthritis, other specified site; M86.8X8 Other osteomyelitis, other site; G06.0 Intracranial abscess and granuloma; L85.3 Xerosis cutis | CPT/HCPCS: 99213; G0463 ==

== ENCOUNTER → 2024-06-12 | Outpatient (CLI) | payer BC, MEDICAID, SELFPAY ==
[2024-06-12 12:14] LABS: Blood Urea Nitrogen 23 mg/dL (9-23); Creatinine (Component) 1.1 mg/dL (0.6-1.3); eGFR > 60 See Note
== END | disposition home or self-care (01) ==
LOC: COPL 11:26
PROVIDERS: PCP Nurse Practitioner Family; Referring Provider Student in an Organized Health Care Education/Training Program; Visit Provider Student in an Organized Health Care Education/Training Program
DX: I70.245 Atherosclerosis of native arteries of left leg with ulceration of other part of foot (principal)
CPT/HCPCS: 36415; 82565; 84520

== ENCOUNTER → 2024-08-02 | Outpatient (CLI) | payer BC, MEDICAID, SELFPAY ==
--- NOTE | 2024-08-02 10:45 | XR_ITS ---
Examination: Ultrasound soft tissue neck TECHNIQUE: Grayscale sonographic images soft tissue neck Date and time: August 02, 2024 1037 hours INDICATIONS: Painless lump left neck note is beginning one year ago. FINDINGS: Soft tissue mass at the area concern left neck 9 x 9 x 8 mm IMPRESSION: Soft tissue mass, likely lymph node, at the area concern , 9 x 9 x 8 mm, consider CT soft tissue neck post intravenous contrast follow-up
[2024-08-02 11:28] LABS: Basophils # (Auto) 0.1 Thou/mm3 (0.0-0.2); Basophils % (Auto) 1 % (0-2.5); Eosinophils # (Auto) 0.1 Thou/mm3 (0.0-0.5); Eosinophils % (Auto) 1 % (0-10); Hematocrit 42.6 % (36.0-46.0); Hemoglobin 14.6 g/dL (12.0-16.0); Immature Granulocytes % (Auto) 0 % (0-0); Immature Granulocytes Auto 0.03 Thou/mm3 (0.00-0.00); Lymphocytes # (Auto) 3.2 Thou/mm3 (1.0-4.8); Lymphocytes % (Auto) 30 % (10-50); Mean Corpuscular HGB Conc 34.3 g/dl (31.0-37.0); Mean Corpuscular Volume 88 fL (80-100); Monocytes # (Auto) 0.6 Thou/mm3 (0.0-0.8); Monocytes % (Auto) 5 % (0-12); Neutrophils # (Auto) 6.6 Thou/mm3 (1.8-7.7); Neutrophils % (Auto) 63 % (37-80); Nucleated Red Blood Cell % 0 /100 WBC (0); Platelet Count 286 Thou/mm3 (140-440); RDW Standard Deviation 48.7 fL (36.4-46.3); Red Blood Count 4.87 Miln/mm3 (4.00-5.20); White Blood Count 10.6 Thou/mm3 (3.6-11.0)
[2024-08-02 11:49] LABS: Vitamin B12 345 pg/mL (211-911); Vitamin D 25 Hydroxy Total 39.8 ng/mL (7.3-40.2)
[2024-08-02 11:54] LABS: Alanine Aminotransferase 12 U/L (10-49); Albumin/Globulin Ratio 1.7 (1.2-2.2); Alkaline Phosphatase 59 U/L (46-116); Anion Gap 5 (7-16); Aspartate Amino Transferase 15 U/L (0-34); BUN/Creatinine Ratio 14 Ratio (12-20); Bilirubin,Total 0.3 mg/dL (0.3-1.2); Blood Urea Nitrogen 17 mg/dL (9-23); Calcium 10.6 mg/dL (8.3-10.6); Calcium (Corrected) 10.6 mg/dL (8.5-10.1); Carbon Dioxide 30.9 mMol/L (20.0-31.0); Chloride 104 mMol/L (98-107); Creatinine (Component) 1.2 mg/dL (0.6-1.3); Glucose 214 mg/dL (74-106); Magnesium 1.9 mg/dL (1.6-2.6); Osmolality,Calculated 286 (275-295); Potassium 4.3 mMol/L (3.4-5.1); Sodium 140 mMol/L (136-145); Thyroid Stimulating Hormone 2.07 uIU/mL (0.55-4.78); eGFR 58 See Note
[2024-08-08 06:26] LABS: Homocysteine* 32.4 umol/L (< OR = 11.0); Methylmalonic Acid, GC/MS/MS* 650 nmol/L (55-335); Vitamin B1 (Thiamine)* 6 nmol/L (8-30)
== END | disposition home or self-care (01) ==
PROVIDERS: PCP Family Medicine; Referring Provider Nurse Practitioner Family; Visit Provider Nurse Practitioner Family
DX: R22.1 Localized swelling, mass and lump, neck (principal); E56.9 Vitamin deficiency, unspecified; R53.83 Other fatigue
CPT/HCPCS: 36415; 76536; 80053; 82306; 82607; 83090; 83735; 83921; 84425; 84443; 85025

== ENCOUNTER → 2024-08-14 | Outpatient (CLI) | payer BC, MEDICAID, SELFPAY ==
[2024-08-14 16:49] LABS: Basophils # (Auto) 0.1 Thou/mm3 (0.0-0.2); Basophils % (Auto) 1 % (0-2.5); Eosinophils # (Auto) 0.1 Thou/mm3 (0.0-0.5); Eosinophils % (Auto) 1 % (0-10); Hematocrit 38.6 % (36.0-46.0); Hemoglobin 13.0 g/dL (12.0-16.0); Immature Granulocytes Auto 0.05 Thou/mm3 (0.00-0.00); Lymphocytes # (Auto) 4.0 Thou/mm3 (1.0-4.8); Lymphocytes % (Auto) 40 % (10-50); Mean Corpuscular HGB Conc 33.7 g/dl (31.0-37.0); Mean Corpuscular Hemoglobin 30.4 pg (25.0-35.0); Mean Corpuscular Volume 90 fL (80-100); Monocytes # (Auto) 0.8 Thou/mm3 (0.0-0.8); Monocytes % (Auto) 8 % (0-12); Neutrophils # (Auto) 4.8 Thou/mm3 (1.8-7.7); Neutrophils % (Auto) 49 % (37-80); Nucleated Red Blood Cell # 0.00 Thou/mm3 (0.00-0.00); Nucleated Red Blood Cell % 0 /100 WBC (0); Platelet Count 258 Thou/mm3 (140-440); RDW Standard Deviation 47.4 fL (36.4-46.3); Red Blood Count 4.27 Miln/mm3 (4.00-5.20); White Blood Count 9.8 Thou/mm3 (3.6-11.0)
[2024-08-14 17:09] LABS: Glucose Estimated Average 143 mg/dL (80-131); Hemoglobin A1C 6.6 % Hgb (4.8-6.0)
[2024-08-14 17:13] LABS: Alanine Aminotransferase 17 U/L (10-49); Albumin, Serum 4.2 gm/dL (3.5-5.0); Albumin/Globulin Ratio 1.7 (1.2-2.2); Alkaline Phosphatase 59 U/L (46-116); Anion Gap 6 (7-16); Aspartate Amino Transferase 20 U/L (0-34); BUN/Creatinine Ratio 15 Ratio (12-20); Bilirubin,Total 0.2 mg/dL (0.3-1.2); Blood Urea Nitrogen 18 mg/dL (9-23); Calcium 9.8 mg/dL (8.3-10.6); Calcium (Corrected) 9.8 mg/dL (8.5-10.1); Carbon Dioxide 35.2 mMol/L (20.0-31.0); Chloride 101 mMol/L (98-107); Creatinine (Component) 1.2 mg/dL (0.6-1.3); Globulin 2.5 gm/dL (2.3-3.5); Glucose 99 mg/dL (74-106); Osmolality,Calculated 285 (275-295); Potassium 4.0 mMol/L (3.4-5.1); Sodium 142 mMol/L (136-145); Total Protein 6.7 gm/dL (5.7-8.2); eGFR 57 See Note
== END | disposition home or self-care (01) ==
PROVIDERS: PCP Nurse Practitioner Family; Referring Provider Nurse Practitioner Family; Visit Provider Nurse Practitioner Family
DX: N17.9 Acute kidney failure, unspecified (principal); E11.65 Type 2 diabetes mellitus with hyperglycemia
CPT/HCPCS: 36415; 80053; 83036; 85025

== ENCOUNTER → 2024-08-15 | Outpatient (CLI) | payer BC, MEDICAID, SELFPAY ==
--- NOTE | 2024-08-15 15:30 | XR_ITS ---
Examination: CT soft tissue neck, with intravenous contrast. 2-D coronal reconstructions. 2-D sagittal reconstructions. Date and time of exam :August 15, 2024, 1644 hours INDICATIONS: Lumps in the left side of the neck 6 years. CTDI: vol (mGy):20.6 DLP: (mGycm):486 Technique: 1.25 mm axial sections of the neck of the obtained. Coronal and sagittal reconstructions have been obtained. Intravenous contrast administered 50 cc Isovue 370 Low dose protocols were performed. One or more of the following dose reduction techniques were used; automated exposure control, adjustment of the mA and/or KV according to patient size, use of iterative reconstruction technique. Findings: Symmetrical nasopharynx or oropharynx. Maxillary antra are clear 3 mm right upper lobe pulmonary nodule Symmetrical parotid and submandibular glands No pathologic carotid triangle lymphadenopathy, 9 mm left 8 mm right carotid triangle lymph nodes 8 mm lymph node left supraclavicular The larynx appears normal Thyroid lobes are not enlarged 4 mm left thyroid nodule Normal epiglottis IMPRESSION: 4 mm left thyroid nodule Small cervical lymph nodes as above Consider dedicated thyroid sonography follow-up 3 mm right upper lobe pulmonary nodule
== END | disposition home or self-care (01) ==
LOC: CCTX 15:01 → SCAT 16:36
PROVIDERS: PCP Nurse Practitioner Family; Referring Provider Nurse Practitioner Family; Visit Provider Nurse Practitioner Family
DX: R91.1 Solitary pulmonary nodule (principal); E04.1 Nontoxic single thyroid nodule
CPT/HCPCS: 70491; A4649; Q9967

== ENCOUNTER → 2025-01-28 | Outpatient (CLI) | payer BC, MEDICAID, SELFPAY ==
[2025-01-28 15:18] LABS: Basophils # (Auto) 0.1 Thou/mm3 (0.0-0.2); Basophils % (Auto) 1 % (0-2.5); Eosinophils # (Auto) 0.1 Thou/mm3 (0.0-0.5); Eosinophils % (Auto) 1 % (0-10); Hematocrit 35.0 % (36.0-46.0); Hemoglobin 11.7 g/dL (12.0-16.0); Immature Granulocytes Auto 0.13 Thou/mm3 (0.00-0.00); Lymphocytes # (Auto) 3.1 Thou/mm3 (1.0-4.8); Lymphocytes % (Auto) 24 % (10-50); Mean Corpuscular HGB Conc 33.4 g/dl (31.0-37.0); Mean Corpuscular Hemoglobin 31.2 pg (25.0-35.0); Mean Corpuscular Volume 93 fL (80-100); Monocytes # (Auto) 0.7 Thou/mm3 (0.0-0.8); Monocytes % (Auto) 6 % (0-12); Neutrophils # (Auto) 8.7 Thou/mm3 (1.8-7.7); Neutrophils % (Auto) 68 % (37-80); Nucleated Red Blood Cell # 0.00 Thou/mm3 (0.00-0.00); Nucleated Red Blood Cell % 0 /100 WBC (0); Platelet Count 255 Thou/mm3 (140-440); RDW Standard Deviation 46.3 fL (36.4-46.3); Red Blood Count 3.75 Miln/mm3 (4.00-5.20); White Blood Count 12.8 Thou/mm3 (3.6-11.0)
[2025-01-28 15:41] LABS: Glucose Estimated Average 123 mg/dL (80-131); Hemoglobin A1C 5.9 % Hgb (4.8-6.0); INR 1.3 (0.9-1.3); Partial Thromboplastin Time 46.8 Seconds (22.0-36.0); Prothrombin Time 13.1 Seconds (9.0-12.2)
[2025-01-28 15:55] LABS: Alanine Aminotransferase < 7 U/L (10-49); Albumin, Serum 4.3 gm/dL (3.5-5.0); Albumin/Globulin Ratio 1.6 (1.2-2.2); Alkaline Phosphatase 55 U/L (46-116); Anion Gap 5 (7-16); Aspartate Amino Transferase 11 U/L (0-34); BUN/Creatinine Ratio 15 Ratio (12-20); Bilirubin,Total 0.2 mg/dL (0.3-1.2); Blood Urea Nitrogen 22 mg/dL (9-23); Calcium 9.5 mg/dL (8.3-10.6); Calcium (Corrected) 9.5 mg/dL (8.5-10.1); Carbon Dioxide 25.6 mMol/L (20.0-31.0); Cardiac Risk Estimate 4.3 RATIO (3.7-5.6); Chloride 111 mMol/L (98-107); Cholesterol 197 mg/dL (132-200); Creatinine (Component) 1.5 mg/dL (0.6-1.3); Globulin 2.7 gm/dL (2.3-3.5); Glucose 213 mg/dL (74-106); HDL Cholesterol 46 mg/dL (40-60); LDL Cholesterol,Calculated 90 mg/dL (0-130); Osmolality,Calculated 292 (275-295); Phosphorous 3.0 mg/dL (2.4-5.1); Potassium 3.8 mMol/L (3.4-5.1); Sodium 142 mMol/L (136-145); Thyroid Stimulating Hormone 0.53 uIU/mL (0.55-4.78); Total Protein 7.0 gm/dL (5.7-8.2); Triglycerides 307 mg/dL (30-150); eGFR 44 See Note
== END | disposition home or self-care (01) ==
LOC: COPL 14:00
PROVIDERS: PCP Student in an Organized Health Care Education/Training Program; Referring Provider Internal Medicine; Visit Provider Student in an Organized Health Care Education/Training Program
DX: I25.10 Atherosclerotic heart disease of native coronary artery without angina pectoris (principal); E11.42 Type 2 diabetes mellitus with diabetic polyneuropathy; I48.91 Unspecified atrial fibrillation; I70.244 Atherosclerosis of native arteries of left leg with ulceration of heel and midfoot
CPT/HCPCS: 36415; 80053; 80061; 83036; 84100; 84443; 85025; 85610; 85730

== ENCOUNTER → 2025-01-29 | Outpatient (CLI) | payer BC, MEDICAID, SELFPAY ==
--- NOTE | 2025-01-29 10:45 | XR_ITS ---
Examination: Screening digital mammography, bilateral Computer aided detection 3-D breast Tomosynthesis, bilateral Date and time of exam: January 29, 2025, 1035 hours, no priors Indication: Screening Technique: Nonmagnified MLO, CC views of the breasts to been obtained, reconstructed from 3-D Tomosynthesis images. R2 computer aided detection program utilized for evaluation of suspicious masses and/or abnormal calcifications. 3-D Tomosynthesis images obtained. Findings: The breasts are heterogeneously dense, which may obscure small masses 8 mm focal asymmetry inner right breast CC view, 7.9 cm from the nipple Impression: BI-RADS Category 0: Incomplete: Need additional imaging evaluation 8 mm focal asymmetry inner right breast CC view, 7.9 cm from the nipple, recommend follow-up spot tomographic views and right upper right breast as well as bilateral breast sonography to complete
== END | disposition home or self-care (01) ==
LOC: CDIM 10:25
PROVIDERS: PCP Student in an Organized Health Care Education/Training Program; Referring Provider Student in an Organized Health Care Education/Training Program; Visit Provider Student in an Organized Health Care Education/Training Program
DX: Z12.31 Encounter for screening mammogram for malignant neoplasm of breast (principal); R92.8 Other abnormal and inconclusive findings on diagnostic imaging of breast; N64.89 Other specified disorders of breast
CPT/HCPCS: 77063; 77067